=== PATIENT | female | born 1950 | race Caucasian/White ===

== ENCOUNTER 2017-02-20 11:40 | Emergency (ER) | payer OTHER ==
[~2017-02-20] VITALS: Ht 160 cm; Wt 72.6 kg
[~2017-02-20 11:40] MED LIST: ALBU17IN INH; ASPI1TAB PO; BREO1INH3 INH; INCR1INH INH; IPRASOL4 INH; LEVO125T3 PO; LOSA100T36 PO; PYRI60TA2 PO; TRAM50TA2 PO
[2017-02-20] MEDS ORDERED: methylPREDNISolone INJ 125 MG/2 ML VIAL (J2930) IV ONE (13:15)
[2017-02-20] MEDS: IPRATROPIUM 0.5MG/ALBUTEROL 2.5MG INH SOL UD 3ML (DUONEB)(J7620) NEB PRN ×3 (13:30→13:58)
[2017-02-20 13:46] LABS: BASO % 0.6 % (0.0-1.0); EOS # 0.8 K/mm3 (0.0-0.50); EOS % 9.3 % (0.0-3.0); LARGE UNSTAINED CELL # 0.1 K/mm3 (0.0-0.4); LARGE UNSTAINED CELL % 1.5 % (0.0-4.0); LYMPH # 1.2 K/mm3 (1.5-4.5); LYMPH % 13.6 % (24.0-44.0); MEAN CORPUSCULAR HEMOGLOBIN 30.6 pg (27.0-33.0); MEAN CORPUSCULAR HGB CONC 32.1 g/dl (32.0-36.5); MEAN CORPUSCULAR VOLUME 95.4 fl (80.0-96.0); MONO # 0.6 K/mm3 (0.0-0.8); MONO % 6.7 % (0.0-5.0); NEUTROPHILS # 5.8 K/mm3 (1.8-7.7); NEUTROPHILS % 68.3 % (36.0-66.0); PLATELET COUNT, AUTOMATED 232 k/mm3 (150-450); RED CELL DISTRIBUTION WIDTH 12.2 % (11.5-14.5); WHITE BLOOD COUNT 8.5 K/mm3 (4.0-10.0)
[2017-02-20 13:57] LABS: ANION GAP 8 MEQ/L (8-16); CALCIUM LEVEL 9.2 MG/DL (8.8-10.2); CARBON DIOXIDE LEVEL 24 MEQ/L (21-32); CHLORIDE LEVEL 110 MEQ/L (98-107); CREATININE FOR GFR 1.09 MG/DL (0.55-1.02); GLOMERULAR FILTRATION RATE 53.8 (>45); GLUCOSE, FASTING 83 MG/DL (80-110); POTASSIUM SERUM 4.3 MEQ/L (3.5-5.1); SODIUM LEVEL 142 MEQ/L (136-145)
[2017-02-20 13:59] LABS: BLOOD UREA NITROGEN 17 MG/DL (7-18)
--- NOTE | 2017-02-20 14:33 | REP ---
CHEST, TWO VIEWS: HISTORY: Cough. COMPARISON: 11/12/2015 The lungs are hyperinflated. A minimal increase in interstitial markings is present in the lungs. The heart is normal in size. The pulmonary vasculature is normal in appearance. The bony structure is intact. IMPRESSION: COPD. Signed by Vasquez Forrester MD 02/20/2017 02:35 P
[2017-02-20] MEDS ORDERED: ISOVUE-370 76% 100ML VIAL (Q9967) As Ordered ONE (14:40)
[2017-02-20 14:52] VITALS: O2SAT 96
--- NOTE | 2017-02-20 15:02 | REP ---
Clinical: Chest pain and shortness of breath . Technique: Axial contrast enhanced images from the thoracic inlet to the upper abdomen using 100 ml Isovue 370 intravenous contrast material with multiplanar re-formations. Findings: Satisfactory enhancement of the pulmonary vasculature is achieved and no filling defects are identified to suggest pulmonary embolus. Further evaluation of the mediastinum demonstrates essentially normal thoracic aorta, heart and pericardium. Lung chew suggest a mild emphysematous disease. There is a small area of presumed atelectasis in the deep right base which appears similar to 08/04/2016. No pleural effusion or pneumothorax. No significant adenopathy. Impression: No evidence for pulmonary embolus. Small focus of chronic atelectasis in the deep right lung base. Signed by Chenet Park MD 02/20/2017 02:54 P
[2017-02-20] MEDS ORDERED: PRED20TA PO (16:01)
[2017-02-20 16:09] VITALS: BP 175/80
--- NOTE | 2017-02-21 10:20 | ECGEPIP ---
Stationary ECG Study [facility] - ED Test Date: 2017-02-20 Pat Name: ASHLEY MARTINEZ Department: Room: - Gender: F Mill Controller: gayla : 1950 Requested By: SANDRO Morrison Order Number: [id number] Reading MD: Alonso Piper Measurements Intervals [place] Rate: 65 P: 84 CO: 156 QRS: 54 QRSD: 80 T: 55 QT: 393 QTc: 409 Interpretive Statements SINUS RHYTHM LAE SEPTAL MYOCARDIAL INFARCTION, OF INDETERMINATE AGE Electronically Signed On 02-21-2017 10:20:31 EDT by Alonso Piper
== END 2017-02-20 16:21 | disposition home or self-care (01) ==
LOC: M ED 14:28
DX: J44.1 Chronic obstructive pulmonary disease with (acute) exacerbation (principal); G70.00 Myasthenia gravis without (acute) exacerbation; F32.9 Major depressive disorder, single episode, unspecified; E07.9 Disorder of thyroid, unspecified; Z79.51 Long term (current) use of inhaled steroids; Z79.82 Long term (current) use of aspirin; Z88.0 Allergy status to penicillin; Z88.1 Allergy status to other antibiotic agents; Z88.6 Allergy status to analgesic agent
CPT/HCPCS: 36415; 71020; 71275; 80048; 82550; 82553; 83880; 85025; 85379; 87040; 87804; 93005; 93041; 94640; 94760; 99285; J2930; Q9967

== ENCOUNTER 2017-06-04 05:15 | Emergency (ER) | payer OTHER ==
[~2017-06-04] VITALS: Ht 162.6 cm; Wt 73.6 kg
[~2017-06-04 05:15] MED LIST changes: -LEVO125T3 PO; +LEVO125T4 PO; +PRED20TA PO
[2017-06-04] MEDS ORDERED: ACETAMINOPHEN TAB 650MG DOSE (2X325MG) PO ONE (06:15)
[2017-06-04 07:38] VITALS: BP 157/87
--- NOTE | 2017-06-04 08:39 | REP ---
Clinical: Trauma. Technique: AP and lateral views of the right forearm. Findings: No acute fracture dislocation. Skeletal structures, joint spaces, and surrounding soft tissues appear intact. Negative ulnar variance at the wrist may warrant correlation. Impression: 1. No acute fracture dislocation. 2. Negative ulnar variance at the wrist. Signed by Chente Park MD 06/04/2017 08:31 A
== END 2017-06-04 07:39 | disposition home or self-care (01) ==
LOC: M ED 05:15
DX: S50.11XA Contusion of right forearm, initial encounter (principal); S60.212A Contusion of left wrist, initial encounter; W19.XXXA Unspecified fall, initial encounter; Y92.019 Unspecified place in single-family (private) house as the place of occurrence of the external cause; Y93.9 Activity, unspecified; Y99.8 Other external cause status; I10 Essential (primary) hypertension; G70.00 Myasthenia gravis without (acute) exacerbation; E03.9 Hypothyroidism, unspecified; F32.9 Major depressive disorder, single episode, unspecified; J45.909 Unspecified asthma, uncomplicated; F17.200 Nicotine dependence, unspecified, uncomplicated; Z79.51 Long term (current) use of inhaled steroids; Z79.82 Long term (current) use of aspirin; Z79.899 Other long term (current) drug therapy; Z88.0 Allergy status to penicillin; Z88.1 Allergy status to other antibiotic agents; Z88.6 Allergy status to analgesic agent; Z88.8 Allergy status to other drugs, medicaments and biological substances

== ENCOUNTER 2017-10-20 10:29 | Emergency (ER) | payer MEDICARE, MEDICAID ==
[~2017-10-20] VITALS: Ht 160 cm; Wt 72.7 kg
[2017-10-20] MEDS ORDERED: KETOROLAC 60 MG/2 ML VIAL (J1885) IM ONE (12:15)
[2017-10-20] MEDS ORDERED: CYCL5TAB PO (12:29)
[2017-10-20 13:09] VITALS: BP 170/91
[2017-10-20] MEDS ORDERED: NORCOTAB PO (18:07)
== END 2017-10-20 13:10 | disposition home or self-care (01) ==
LOC: M ED 10:29
DX: M54.42 Lumbago with sciatica, left side (principal); J45.909 Unspecified asthma, uncomplicated; F33.9 Major depressive disorder, recurrent, unspecified; E03.9 Hypothyroidism, unspecified; G70.00 Myasthenia gravis without (acute) exacerbation; F17.210 Nicotine dependence, cigarettes, uncomplicated; Z79.899 Other long term (current) drug therapy; Z79.51 Long term (current) use of inhaled steroids; Z79.82 Long term (current) use of aspirin; Z88.0 Allergy status to penicillin; Z88.8 Allergy status to other drugs, medicaments and biological substances; Z88.1 Allergy status to other antibiotic agents
CPT/HCPCS: 96372; 99282; 99283; J1885; J2930

== ENCOUNTER 2017-10-20 17:08 | Emergency (ER) | payer MEDICARE, MEDICAID ==
[~2017-10-20] VITALS: Ht 160 cm; Wt 76.3 kg
[~2017-10-20 17:08] MED LIST changes: +CYCL5TAB PO
[2017-10-20 17:16] VITALS: BP 146/94
[2017-10-20] MEDS ORDERED: NORCOTAB PO (18:07)
[2017-10-20] MEDS ORDERED: methylPREDNISolone INJ 125 MG/2 ML VIAL (J2930) IM ONE (18:15)
== END 2017-10-20 18:14 | disposition home or self-care (01) ==
LOC: M ED 17:08
DX: M54.30 Sciatica, unspecified side (principal); J45.909 Unspecified asthma, uncomplicated; F33.9 Major depressive disorder, recurrent, unspecified; E03.9 Hypothyroidism, unspecified; G70.00 Myasthenia gravis without (acute) exacerbation; F17.210 Nicotine dependence, cigarettes, uncomplicated; Z79.899 Other long term (current) drug therapy; Z79.51 Long term (current) use of inhaled steroids; Z79.82 Long term (current) use of aspirin; Z88.0 Allergy status to penicillin; Z88.8 Allergy status to other drugs, medicaments and biological substances; Z88.1 Allergy status to other antibiotic agents

== ENCOUNTER → 2018-03-27 | Outpatient (CLI) | payer MEDICARE, MEDICAID ==
[2018-03-27 16:48] LABS: HEMATOCRIT 44.2 % (36.0-47.0); HEMOGLOBIN 14.1 g/dl (12.0-15.5); MEAN CORPUSCULAR HEMOGLOBIN 30.3 pg (27.0-33.0); MEAN CORPUSCULAR HGB CONC 31.9 g/dl (32.0-36.5); MEAN CORPUSCULAR VOLUME 94.8 fl (80.0-96.0); PLATELET COUNT, AUTOMATED 321 10^3/uL (150-450); RED BLOOD COUNT 4.66 10^6/uL (4.00-5.40); RED CELL DISTRIBUTION WIDTH 13.2 % (11.5-14.5); WHITE BLOOD COUNT 8.5 10^3/uL (4.0-10.0)
[2018-03-27 18:30] LABS: ALBUMIN 4.1 GM/DL (3.2-5.2); ALBUMIN/GLOBULIN RATIO 1.11 (1.00-1.93); ALKALINE PHOSPHATASE 105 U/L (45-117); ALT/SGPT 20 U/L (12-78); ANION GAP 7 MEQ/L (8-16); AST/SGOT 20 U/L (7-37); BILIRUBIN,TOTAL 0.7 MG/DL (0.2-1.0); BLOOD UREA NITROGEN 29 MG/DL (7-18); CALCIUM LEVEL 9.9 MG/DL (8.8-10.2); CARBON DIOXIDE LEVEL 25 MEQ/L (21-32); CHLORIDE LEVEL 108 MEQ/L (98-107); CHOLESTEROL LEVEL 247 MG/DL (<200); CHOLESTEROL RISK RATIO 3.207 (<5); GLOMERULAR FILTRATION RATE 30.1 (>45); GLUCOSE, FASTING 72 MG/DL (70-100); HDL CHOLESTEROL 77 MG/DL (>40); LDL CHOLESTEROL 145.8 MG/DL (<100); NON-HDL-C 170 MG/DL; POTASSIUM SERUM 4.7 MEQ/L (3.5-5.1); SODIUM LEVEL 140 MEQ/L (136-145); TOTAL PROTEIN 7.8 GM/DL (6.4-8.2); TRIGLYCERIDES LEVEL 121 MG/DL (<150)
== END ==
LOC: M WUC 12:00
DX: I10 Essential (primary) hypertension (principal); E03.9 Hypothyroidism, unspecified
CPT/HCPCS: 84443

== ENCOUNTER → 2018-07-05 | Outpatient (REF) | payer MEDICARE, MEDICAID ==
[2018-07-05 18:14] LABS: IMMUNOGLOBULIN E 17.1 IU/ML (<100)
[2018-07-09 08:06] LABS: D001-IgE D pteronyssinus <0.10 kU/L (Class 0); E001-IgE Cat Epith/Dander < 0.10 kU/L (Class 0); E005-IgE Dog Dander < 0.10 kU/L (Class 0); G002-IgE Bermuda Grass < 0.10 kU/L (Class 0); G008-IgE Kentucky Bluegrass < 0.10 kU/L (Class 0); M001-IgE Penicillium chrysogen < 0.10 kU/L (Class 0); M002 IgE Cladosporium herbaru < 0.10 kU/L (Class 0); M003 IgE Aspergillus fumigatu < 0.10 kU/L (Class 0); M006-IgE Alternaria alternata < 0.10 kU/L (Class 0); T001-IgE Maple/Box Elder < 0.10 kU/L (Class 0); T003-IgE Common Silver Birch < 0.10 kU/L (Class 0); T006-IgE Cedar, Mountain < 0.10 kU/L (Class 0); T007-IgE Oak, White < 0.10 kU/L (Class 0); T008-IgE Elm, American < 0.10 kU/L (Class 0); T015-IgE Ash, White < 0.10 kU/L (Class 0); T041-IgE Hickory, White < 0.10 kU/L (Class 0); T070-IgE White Mulberry < 0.10 kU/L (Class 0); W001-IgE Ragweed, Short < 0.10 kU/L (Class 0); W009-IgE Plantain, English < 0.10 kU/L (Class 0); W014-IgE Pigweed, Rough < 0.10 kU/L (Class 0); W018-IgE Sheep Sorrel < 0.10 kU/L (Class 0)
== END ==
LOC: M LAB REF 16:54
DX: J45.20 Mild intermittent asthma, uncomplicated (principal)
CPT/HCPCS: 82785

== ENCOUNTER 2018-07-15 13:01 | Emergency (ER) | payer MEDICARE, MEDICAID ==
[2018-07-15] MEDS: NORCO, ANEXSIA 5/325MG TABLET (HYDROcodone/ACETAMINOPHEN) PO (13:59)
[2018-07-15] MEDS: KETOROLAC 60 MG/2 ML VIAL (J1885) IM (14:00)
== END 2018-07-15 14:26 | disposition home or self-care (01) ==
LOC: M ED 13:01
DX: M54.42 Lumbago with sciatica, left side (principal); E03.9 Hypothyroidism, unspecified; F32.9 Major depressive disorder, single episode, unspecified; J44.9 Chronic obstructive pulmonary disease, unspecified; Z87.891 Personal history of nicotine dependence; Z79.82 Long term (current) use of aspirin; Z79.899 Other long term (current) drug therapy; Z88.0 Allergy status to penicillin; Z88.6 Allergy status to analgesic agent; Z88.1 Allergy status to other antibiotic agents; Z88.8 Allergy status to other drugs, medicaments and biological substances
CPT/HCPCS: J1885

== ENCOUNTER 2018-08-26 12:59 | Emergency (ER) | payer MEDICARE, MEDICAID ==
[2018-08-26] MEDS: methylPREDNISolone INJ 125 MG/2 ML VIAL (J2930) IM (14:07)
== END 2018-08-26 14:30 | disposition home or self-care (01) ==
LOC: M ED 12:59
DX: M54.32 Sciatica, left side (principal); I10 Essential (primary) hypertension; J44.9 Chronic obstructive pulmonary disease, unspecified; E03.9 Hypothyroidism, unspecified; F32.9 Major depressive disorder, single episode, unspecified; G70.00 Myasthenia gravis without (acute) exacerbation; Z88.0 Allergy status to penicillin; Z88.8 Allergy status to other drugs, medicaments and biological substances; Z88.1 Allergy status to other antibiotic agents; Z79.899 Other long term (current) drug therapy; Z79.82 Long term (current) use of aspirin; Z79.51 Long term (current) use of inhaled steroids
CPT/HCPCS: J2930

== ENCOUNTER 2018-10-14 13:08 | Emergency (ER) | payer MEDICARE, MEDICAID ==
[2018-10-14] MEDS ORDERED: methylPREDNISolone INJ 125 MG/2 ML VIAL (J2930) IV (14:30)
[2018-10-14] MEDS: methylPREDNISolone INJ 125 MG/2 ML VIAL (J2930) IM (14:30)
== END 2018-10-14 14:54 | disposition home or self-care (01) ==
LOC: M ED 13:08
DX: J20.9 Acute bronchitis, unspecified (principal); M54.32 Sciatica, left side; I10 Essential (primary) hypertension; J44.0 Chronic obstructive pulmonary disease with (acute) lower respiratory infection; E03.9 Hypothyroidism, unspecified; G70.00 Myasthenia gravis without (acute) exacerbation; Z88.0 Allergy status to penicillin; Z88.1 Allergy status to other antibiotic agents; Z88.8 Allergy status to other drugs, medicaments and biological substances; Z87.891 Personal history of nicotine dependence
CPT/HCPCS: J2930

== ENCOUNTER 2019-02-17 10:51 | Emergency (ER) | payer MEDICARE, MEDICAID ==
[~2019-02-17] VITALS: Ht 165.1 cm; Wt 70.7 kg
[~2019-02-17 10:51] MED LIST changes: +AZIT-12 PO; +GABA-843 PO; +IPRA0.00 INH; -IPRASOL4 INH; +LEVO125T4; -LOSA100T36 PO; +LOSA100T50 PO; +NORCOTAB PO
[2019-02-17] MEDS ORDERED: ATOR80TA59 (11:08)
[2019-02-17] MEDS ORDERED: methylPREDNISolone INJ 125 MG/2 ML VIAL (J2930) IM ONE (11:30)
[2019-02-17] MEDS ORDERED: NORCO, ANEXSIA 5/325MG TABLET (HYDROcodone/ACETAMINOPHEN) PO ONE (12:15)
[2019-02-17] MEDS ORDERED: PRED10TA2 PO (12:27)
[2019-02-17 12:33] VITALS: BP 137/56
== END 2019-02-17 12:34 | disposition home or self-care (01) ==
LOC: M ED 10:51
DX: M54.42 Lumbago with sciatica, left side (principal); G89.29 Other chronic pain; G70.00 Myasthenia gravis without (acute) exacerbation; I10 Essential (primary) hypertension; J45.909 Unspecified asthma, uncomplicated; J44.9 Chronic obstructive pulmonary disease, unspecified; E03.9 Hypothyroidism, unspecified; F32.9 Major depressive disorder, single episode, unspecified; Z79.82 Long term (current) use of aspirin; Z79.891 Long term (current) use of opiate analgesic; Z79.899 Other long term (current) drug therapy; Z88.0 Allergy status to penicillin; Z88.1 Allergy status to other antibiotic agents; Z88.6 Allergy status to analgesic agent; Z88.8 Allergy status to other drugs, medicaments and biological substances
CPT/HCPCS: 96372; 99283; J2930

== ENCOUNTER 2019-10-28 17:10 | Emergency (ER) | payer MEDICARE, MEDICAID ==
[~2019-10-28] VITALS: Ht 157.5 cm; Wt 70.5 kg
[~2019-10-28 17:10] MED LIST changes: -ASPI1TAB PO; +ASPI81TA26 PO; +ATOR80TA59; +HYDR-3715 PO; -NORCOTAB PO; +PRED10TA2 PO
[2019-10-28 18:14] VITALS: BP 192/81
[2019-10-28] MEDS ORDERED: NYST50SS (18:20)
== END 2019-10-28 19:00 | disposition left against medical advice (07) ==
LOC: M ED 17:10
DX: R06.00 Dyspnea, unspecified (principal); B37.0 Candidal stomatitis; I10 Essential (primary) hypertension; J44.9 Chronic obstructive pulmonary disease, unspecified; G70.00 Myasthenia gravis without (acute) exacerbation; F17.290 Nicotine dependence, other tobacco product, uncomplicated; Z79.899 Other long term (current) drug therapy; Z79.82 Long term (current) use of aspirin; Z79.51 Long term (current) use of inhaled steroids; Z88.0 Allergy status to penicillin; Z88.1 Allergy status to other antibiotic agents; Z88.6 Allergy status to analgesic agent

== ENCOUNTER 2019-11-12 14:33 | Emergency (ER) | payer MEDICARE, MEDICAID ==
[~2019-11-12] VITALS: Ht 162.6 cm; Wt 70.5 kg
[~2019-11-12 14:33] MED LIST changes: +NYST50SS
[2019-11-12] MEDS ORDERED: BREO1INH3 PO (14:43)
[2019-11-12 15:50] LABS: AMORPHOUS SEDIMENT SMALL (NEGATIVE); APPEARANCE, URINE HAZY (CLEAR); BACTERIA, URINE AUTO NEGATIVE (NEGATIVE); BILIRUBIN, URINE AUTO NEGATIVE (NEGATIVE); BLOOD, URINE BLOOD NEGATIVE (NEGATIVE); COLOR, URINE YELLOW (YELLOW); GLUCOSE, URINE (UA) AUTO NEGATIVE (NEGATIVE); KETONE, URINE AUTO NEGATIVE (NEGATIVE); LEUKOCYTE ESTERASE, URINE AUTO 3+ (NEGATIVE); MUCUS, URINE SMALL (NEGATIVE); NITRITE, URINE AUTO NEGATIVE (NEGATIVE); PROTEIN, URINE AUTO NEGATIVE (NEGATIVE); RBC, URINE AUTO 6 /HPF (0-3); SPECIFIC GRAVITY URINE AUTO 1.016 (1.002-1.035); SQUAMOUS EPITHELIAL CELL UR AU 2 /HPF (0-6); UROBILINOGEN, URINE AUTO 0.2 mg/dL (0.0-2.0); WBC, URINE AUTO 162 /HPF (0-3)
[2019-11-12 15:52] LABS: BASO # 0.1 10^3/uL (0.0-0.2); BASO % 1.1 % (0.0-1.0); EOS # 0.2 10^3/uL (0.0-0.5); EOS % 2.4 % (0.0-3.0); HEMATOCRIT 42.3 % (36.0-47.0); LYMPH # 1.9 10^3/uL (1.5-5.0); LYMPH % 22.7 % (24.0-44.0); MEAN CORPUSCULAR HEMOGLOBIN 29.7 pg (27.0-33.0); MEAN CORPUSCULAR HGB CONC 30.7 g/dl (32.0-36.5); MEAN CORPUSCULAR VOLUME 96.8 fl (80.0-96.0); MONO # 0.7 10^3/uL (0.0-0.8); NEUTROPHILS # 5.5 10^3/uL (1.5-8.5); NEUTROPHILS % 65.4 % (36.0-66.0); PLATELET COUNT, AUTOMATED 275 10^3/uL (150-450); RED BLOOD COUNT 4.37 10^6/uL (4.00-5.40); WHITE BLOOD COUNT 8.5 10^3/uL (4.0-10.0)
[2019-11-12] MEDS ORDERED: CARVedilol 3.125 MG TAB PO ONE (16:00)
[2019-11-12 16:14] LABS: ALBUMIN 3.9 GM/DL (3.2-5.2); BILIRUBIN,TOTAL 1.2 MG/DL (0.2-1.0); CALCIUM LEVEL 9.6 MG/DL (8.8-10.2); CREATININE FOR GFR 1.17 MG/DL (0.55-1.30); GLOMERULAR FILTRATION RATE 49.1 (>45); POTASSIUM SERUM 4.8 MEQ/L (3.5-5.1); TOTAL PROTEIN 7.7 GM/DL (6.4-8.2)
[2019-11-12 17:08] VITALS: BP 140/90
[2019-11-12] MEDS ORDERED: BACT800T5 PO (17:19)
[2019-11-12] MEDS ORDERED: LOSA100T50 PO (17:19)
[2019-11-12] MEDS ORDERED: CARV3.12 PO (17:19)
--- NOTE | 2019-11-12 17:34 | REP ---
REASON: Painful lump. PRIORS: None. No history of trauma. There are mild degenerative changes seen throughout the foot. There is no evidence of an acute fracture. There is no evidence of a destructive osseous lesion. IMPRESSION: Mild degenerative changes. If a mass is of clinical concern than an MRI is recommended. Electronically Signed by Reji Harrison DO 11/13/2019 11:31 A
--- NOTE | 2019-11-13 07:20 | REP ---
RENAL ULTRASOUND: Real-time sonographic evaluation of the kidneys performed. Right kidney is atrophic measuring 8.2 x 3.2 x 3.6 cm. Left kidney measures 9.4 x 3.9 x 4.7 cm. There is no hydronephrosis bilaterally. Right kidney is hyperechoic suggesting medical renal disease. The cyst in the upper pole of the left kidney measures 2.2 x 1.6 x 1.9 cm and in the mid aspect 1.7 x 1.8 x 1.9 cm. Urinary bladder is not well distended and not well evaluated. IMPRESSION: No hydronephrosis. Right renal atrophy. Increased echotexture of the right kidney suggests medical renal disease. Electronically Signed by Meliton Montes MD 11/13/2019 07:15 P
--- NOTE | 2019-11-13 08:05 | ECGEPIP ---
[facility] - ED Test Date: 2019-11-12 Pat Name: ASHLEY MARTINEZ Department: Room: - Gender: Female Cardiac Sonographer: : 1950 Requested By: Nancy Mcneill Order Number: [id number] Reading MD: Nancy Mcneill Measurements Intervals [place] Rate: 86 P: 81 LA: 144 QRS: 38 QRSD: 83 T: 61 QT: 337 QTc: 405 Interpretive Statements SINUS RHYTHM POSSIBLE LEFT ATRIAL ENLARGEMENT SEPTAL MYOCARDIAL INFARCTION, PROBABLY OLD INCREASED RATE 02/20/17 Electronically Signed on 11-13-2019 8:05:39 EST by Nancy Mcneill
--- NOTE | 2019-11-18 08:03 | ED PDOC ---
Post-Departure Follow-Up dr reickson faxed formal report of left foot for fu Yumiko Richmond MD Nov 18, 2019 08:03
--- NOTE | 2019-11-18 08:15 | ED PDOC ---
Post-Departure Follow-Up dr murray faxed fomral report of renal us for fu Yumiko Richmond MD Nov 18, 2019 08:15
== END 2019-11-12 17:27 | disposition home or self-care (01) ==
LOC: M ED 14:33
DX: I10 Essential (primary) hypertension (principal); N39.0 Urinary tract infection, site not specified; J45.909 Unspecified asthma, uncomplicated; J44.9 Chronic obstructive pulmonary disease, unspecified; E03.9 Hypothyroidism, unspecified; G70.00 Myasthenia gravis without (acute) exacerbation; F33.9 Major depressive disorder, recurrent, unspecified; Z79.899 Other long term (current) drug therapy; Z79.82 Long term (current) use of aspirin; Z88.0 Allergy status to penicillin; Z88.1 Allergy status to other antibiotic agents; Z88.8 Allergy status to other drugs, medicaments and biological substances; Z87.891 Personal history of nicotine dependence

== ENCOUNTER → 2020-01-20 | Outpatient (CLI) | payer MEDICARE, MEDICAID ==
[~2020-01-20] MED LIST changes: +BACT800T5 PO; +BREO1INH3 PO; +CARV3.12 PO
--- NOTE | 2020-01-20 15:37 | REP ---
Low-dose lung screening chest CT: Comparison is the chest CT dated 08/04/2016. The study is performed without IV contrast. The images are presented at lung windowing only. There is a 7 ml nodule in the right upper lobe on image 41, unchanged from the prior study, likely a granuloma. There are no other lung nodules or masses. There are no infiltrates or pleural effusions. There is chronic curvilinear scarring inferiorly in the lingula and in the lower lobes bilaterally, unchanged from the prior study. Impression: Category II low-dose lung screening CT of the chest. The probability of malignancy is less than 1%. Depending on risk factors consider annual follow-up low-dose lung screening chest CT. Electronically Signed by Meliton Lowery MD 01/20/2020 03:29 P
== END ==
LOC: M RAD 13:34
PROVIDERS: ATTEND Internal Medicine Pulmonary Disease
DX: Z87.891 Personal history of nicotine dependence (principal)

== ENCOUNTER 2020-08-26 20:40 | Emergency (ER) | payer MEDICARE, MEDICAID ==
[~2020-08-26] VITALS: Ht 160 cm; Wt 70.5 kg
[2020-08-26] MEDS ORDERED: KETOROLAC 60MG 2ML VIAL IM ONE (21:15)
[2020-08-26] MEDS ORDERED: diazePAM 10MG/2ML SYRINGE (J3360 PER 5MG) IM ONE (21:15)
[2020-08-26] MEDS ORDERED: NAPR-837 PO (21:24)
[2020-08-26] MEDS ORDERED: CYCL-707 PO (21:24)
[2020-08-26 21:29] VITALS: BP 210/112
[2020-08-26] MEDS ORDERED: PERCOCET 5MG/325MG TAB PO ONE (21:30)
== END 2020-08-26 21:38 | disposition home or self-care (01) ==
LOC: M ED 20:40
DX: M54.30 Sciatica, unspecified side (principal); M79.604 Pain in right leg; J44.9 Chronic obstructive pulmonary disease, unspecified; F17.200 Nicotine dependence, unspecified, uncomplicated; Z88.0 Allergy status to penicillin; Z88.1 Allergy status to other antibiotic agents; Z88.6 Allergy status to analgesic agent; Z88.8 Allergy status to other drugs, medicaments and biological substances; Z79.899 Other long term (current) drug therapy; Z79.82 Long term (current) use of aspirin; Z79.51 Long term (current) use of inhaled steroids
CPT/HCPCS: 96372; 99282; J1885

== ENCOUNTER → 2020-09-14 | Outpatient (CLI) | payer MEDICARE, MEDICAID ==
[~2020-09-14] MED LIST changes: +CYCL-707 PO; +NAPR-837 PO
--- NOTE | 2020-09-15 16:01 | ECWPNPC ---
PATIENT NAME: ASHLEY MARTINEZ : 1950 GENDER: FEMALE VISIT DATE: 09/14/2020 DISCHARGE DATE: 09/14/2034 VISIT LOCKED DATE TIME: PHYSICIAN: ANA BLOOM RESOURCE: ANA BLOOM REASON FOR APPOINTMENT 1. BILAT KNEE PAIN HISTORY OF PRESENT ILLNESS GENERAL: - 70-YEAR-OLD FEMALE IN FOR CHRONIC PAIN INITIAL EVALUATION. PATIENT HAS HAD BILATERAL KNEE PAIN THAT SHE HAS BEEN SEEN BY ORTHOPEDICS FOR. PATIENT HAD BEEN RECEIVING INJECTIONS BY ORTHOPEDICS HOWEVER SHE IS EXPERIENCING INCREASED FALLS STATUS POST INJECTIONS OF THE WERE DISCONTINUED. SHE HAS A HISTORY OF BEING ON TRAMADOL 6 TABS PER DAY TO HELP MANAGE HER PAIN AND SHE FELT THAT THIS WAS EFFICACIOUS. FALL RISK SCREENING: SCREENING :TWO OR MORE FALLS WITHOUT INJURY IN THE PAST YEAR PATIENT STATES SHE HAS MYSTNIA GRAVIAS, AND TENDS TO FALL OFTEN. PATIENT CLAIMS SHE HAS NOT BROKEN BONES, ONLY BRUISES AT THIS TIME. PAIN SCREENING: PATIENT HAS A COMPLAINT OF ACUTE OR CHRONIC PAIN :YES LOCATION OF PAIN:KNEES BILATERAL KNEE PAIN INTENSITY OF PAIN (SCALE OF 1 TO 10):6 WHAT DOES YOUR PAIN FEEL LIKE:ACHING, BURNING, SHARP, SHOOTING DURATION:CONSTANT, AWAKENS FROM SLEEP PAIN IS INCREASED BY:ACTIVITIES, PROLONGED STANDING PAIN IS DECREASED BY:USE OF PAIN MEDICATIONS TRAMADOL HELPS TO EASE THE PAIN. PATIENTS STATES ORTHOPEDIC HAD HER TAKING 6 TRAMADOL A DAY, AND HAS RECENTLY REDUCED HER TO 3 TRAMADOL A DAY. NURSING NOTE: - -. PAIN CENTER INTAKE QUESTIONS: DO YOU HAVE A HISTORY OF MRSA? :NO DO YOU TAKE A BLOOD THINNERS? :NO DO YOU HAVE ANY BLEEDING DISORDERS? :NO ANY NEW NUMBNESS OR WEAKNESS IN YOUR LEGS OR ARMS? :NO ANY PACEMAKER,DEFIBRILLATOR, OR DORSAL COLUMN STIMULATOR? :NO DO YOU HAVE ANY RASHES OR OPEN SORES? :NO ARE YOU ALLERGIC TO IV DYE? :NO ARE YOU DIABETIC? :NO ANY NEW PROBLEMS WITH YOUR MEDICATIONS? :NO HAVE YOU RECEIVED A VACCINE IN THE PAST 30 DAYS? :YES PATIENT HAD A FLU SHOT 2 WEEKS AGO DO YOU PLAN TO RECEIVE A VACCINE IN THE NEXT 21 DAYS? :NO DO YOU NEED ANY PRESCRIPTION? :NO DO YOU TAKE ANY IMMUNOSUPPRESSIVE MEDICATIONS? :NO CURRENT MEDICATIONS TAKING LEVOXYL 125 MCG TABLET 1 TABLET ON AN EMPTY STOMACH IN THE MORNING ORALLY ONCE A DAY TAKING ASPIR-81 81 MG TABLET DELAYED RELEASE 1 TABLET ORALLY ONCE A DAY TAKING BREO ELLIPTA 200-25 MCG/INH AEROSOL POWDER BREATH ACTIVATED 1 PUFF INHALATION ONCE A DAY TAKING INCRUSE ELLIPTA 62.5 MCG/INH AEROSOL POWDER BREATH ACTIVATED 1 PUFF INHALATION ONCE A DAY TAKING LEVALBUTEROL TARTRATE 45 MCG/ACT AEROSOL INHALE TWO PUFFS BY MOUTH EVERY 4 HOURS NEEDED INHALATION TAKING ATORVASTATIN CALCIUM 80 MG TABLET 1 TABLET ORALLY ONCE A DAY TAKING LOSARTAN POTASSIUM 25 MG TABLET 1 TABLET ORALLY ONCE A DAY TAKING CARVEDILOL 3.125 MG TABLET 1 TABLET ORALLY TWICE A DAY TAKING LIDOCAINE 5 % OINTMENT 1 APPLICATION NEEDED EXTERNALLY THREE TIMES A DAY TAKING TRAMADOL HCL 50 MG TABLET 1 TABLET NEEDED ORALLY TID TAKING LEVOTHYROXINE SODIUM 125 MCG TABLET 1 TABLET IN THE MORNING ON AN EMPTY STOMACH ORALLY ONCE A DAY TAKING SIMVASTATIN 10 MG TABLET 1 TABLET IN THE EVENING ORALLY ONCE A DAY TAKING TYLENOL 1 -2 TABS ORAL EVERY 6 HOURS PRN NOT-TAKING ALBUTEROL SULFATE (2.5 MG/3ML) 0.083% NEBULIZATION SOLUTION 3 ML INHALATION THREE TIMES A DAY NOT-TAKING VENTOLIN HFA 108 (90 BASE) MCG/ACT AEROSOL SOLUTION 1 PUFF NEEDED INHALATION EVERY 4 HRS MEDICATION LIST REVIEWED AND RECONCILED WITH THE PATIENT PAST MEDICAL HISTORY COPD/ SPIRO10/10/ PULM NODULE- LILLIANA MYASTHENIA GRAVIS- NCN- S BARBARA TOBACCO ABUSE- QUIT 01/14. BACK PAIN HYPOTHYROIDISM CHEST X-RAY 10/10/13-STABLE CHRONIC CHANGES. NO ACUTE CONSOLIDATION/EFFUSION/PNEUMOTHORAX NUCLEAR STRESS STUDY 05/02 [facility] NORMAL PERFUSION/EF 79% EKG 05/02 NSR/ EKG 11/08/13 NSR, NO CHANGE FROM PREVIOUS MRI BRAIN 11/26/13 NML ECHO [facility] 04/25/14- NML SYST AND DIASTOLIC FUNCTION, TR MR MAMMO- REFUSES DEXA- REFUSES XR LS SPINE- MILD DDD L5-S1 SIMILAR TO 09/01 PREMATURE SURGICAL MENOPAUSE AGE 27/ERTX36 YRS CANNY-ECHO/STRESS LOW RISK 11/10 ASTHMA ALLERGIES AMOXICILLIN: HIVES - ALLERGY TETRACYCLINE HCL: HIVES - ALLERGY COMPAZINE: HIVES - ALLERGY IBUPROFEN: HIGH DOSES N/V - SIDE EFFECTS ASPIRIN: HIGH DOSES N/V - SIDE EFFECTS SURGICAL HISTORY LEFT HAND AND ARM TENDON REPAIR 16 YO C SECTION 1969 HYSTERECTOMY/BSO 1976 COLONOSCOPY- REFUSED FAMILY HISTORY FATHER: , SD 56 YO MOTHER: ALIVE 86 YRS, S/P RENAL TRANSPLANT SIBLINGS: , SISTER WITH PRIMARY BILIARY CIRHOSIS, COLON CA AT 60, WAS ALSO KNOWN TO HAVE RENAL FAILURE SON(S): ALIVE, BORN 1969/1971. OLDEST AMI IN 40 DAUGHTER(S): ALIVE, BORN 1974,1975. BOTH, NO KNOWN MEDICAL PROBLEMS 1 BROTHER(S) , 2 SISTER(S) . 2 SON(S) , 2 DAUGHTER(S) - HEALTHY. DENIES BREAST OR OVARIAN CANCERS. SOCIAL HISTORY GENERAL: TOBACCO USE ARE YOU A:CURRENT SMOKER PATEINT CURRENTLY VAPES ARE YOU INTERESTED IN QUITTING?NOT READY TO QUIT COUNSELED THE PATIENT ON SMOKING EFFECTS, EDUCATION NNEIGSQE26/19/2020 PATIENT COUNSELED ON THE DANGERS OF TOBACCO USE AND URGED TO QUIT:09/14/2020 LATEX QUESTIONNAIRE LATEX ALLERGY : HAVE YOU EVER DEVELOPED ANY TYPE OF REACTION AFTER HANDLING LATEX PRODUCTS SUCH RUBBER GLOVES, CONDOMS, DIAPHRAGMS, BALLOONS, SOCKS, OR UNDERWEAR?NO LATEX ALLERGY : HAVE YOU EVER DEVELOPED ANY TYPE OF REACTION DURING OR AFTER DENTAL APPOINTMENT, VAGINAL/RECTAL EXAMINATION, SURGICAL PROCEDURE, OR ANY OTHER EXPOSURE?NO LATEX RISK : HAVE YOU EVER HAD ANY DIFFICULTY BREATHING OR HIVES AFTER EATING OR HANDLING ANY FRUITS, OR VEGETABLES; SUCH KIWI, BANANAS, STONE FRUITS, OR CHESTNUTSNO LATEX RISK : DO YOU HAVE A PREVIOUS PERSONAL HISTORY OF MORE THAN NINE SURGERIES, SPINA BIFIDA, OR REPEATED CATHERIZATIONS? NO LATEX RISK : ARE YOU FREQUENTLY EXPOSED TO LATEX PRODUCTS IN YOUR OCCUPATION?NO DATE ASKED : 09/14/2020 BMI CARE GOAL FOLLOW-UP ABOVE NORMAL BMI FOLLOW-UPLIFESTYLE EDUCATION REGARDING DIET ALCOHOL SCREENING DID YOU HAVE A DRINK CONTAINING ALCOHOL IN THE PAST YEAR?NO POINTS0 INTERPRETATIONNEGATIVE RECREATIONAL DRUG USE DENIES. CAFFEINE 1-2/DAY. SEXUAL HX HAD SEX IN THE LAST 12 MONTHS (VAGINAL, ORAL, OR ANAL)?NO HAVE YOU EVER HAD AN STD?NO HIV / HEP-C SCREENING HIV TEST OFFERED TO PATIENT:YES DATE OFFERED:11/30/2018 TEST ACCEPTED:NO HEP-C TEST OFFERED TO PATIENT:YES DATE OFFERED:11/30/2018 TEST ACCEPTED:NO BROCHURE PROVIDED TO PATIENTNO SPIRITISM NO CHRISTIANITY BELIEFS THAT WOULD IMPACT HEALTH CARE. LANGUAGE TRINIDADIAN. EDUCATION LEVEL OF EDUCATION:FINISHED HIGH SCHOOL LEARNING BARRIERS / SPECIAL NEEDS BARRIERS TO LEARNING?NO HEARING IMPAIRED?YES VISION IMPAIRED?YES COGNITIVELY IMPAIRED?NO : CAN'T AFFORD HEARING AIDS :CORRECTIVE LENSES READINESS TO LEARN?YES LEARNING PREFERENCES?NO LEARNING CAPABILITIES PRESENT?YES EMOTIONAL BARRIERS?NO SPECIAL DEVICES?NO TABLE GAMES SUPERVISOR NEEDED?NO DOMESTIC VIOLENCE REPORTS PHYSICAL ABUSE, VERBAL ABUSE IN PREVIOUS MARRIAGE. OCCUPATION: RETIRED SEAMSTRESS. DIET: REGULAR. EXERCISE: WALKS 2 MILES DAILY. MARITAL STATUS: SINGLE. OTHERS AT HOME: LIVES ALONE. PAIN CLINIC PFS, CLERGY, PUBLIC HEALTH REFERRALS HAS THE PATIENT BEEN EDUCATED REGARDING HIS/HER PLAN OF CARE?YES HAS THE PATIENT BEEN EDUCATED REGARDING PAIN, THE RISK FOR PAIN, THE IMPORTANCE OF EFFECTIVE PAIN MANAGEMENT, AND THE PAIN ASSESSMENT PROCESS?YES HOUSING: RENTS HOUSE. ADVANCE DIRECTIVE ADVANCE DIRECTIVE DISCUSSED WITH PATIENT:YES . NO HCP YET, BUT FILLED OUT [facility]OLST 11/2018 HOSPITALIZATION/MAJOR DIAGNOSTIC PROCEDURE NO HOSPITALIZATION HISTORY. REVIEW OF SYSTEMS CONSTITUTIONAL: ANY RECENT FEVER NO . CHILLS NO . WEIGHT CHANGE OF UNKNOWN REASONS NO . MUSCULOSKELETAL: ANY UNUSUAL JOINT PAIN OR SWELLING NOT MENTIONED NO . SYSTEMIC LUPUS NO . ANY NEUROMUSCULAR DISORDER NOT MENTIONED NO . LYME DISEASE NO . GASTROENTEROLOGY: ANY NEW CHANGE IN BOWEL CONTROL? NO . HISTORY OF LIVER DISORDER NOT MENTIONED NO . HISTORY OF UNUSUAL ABDOMINAL PAIN OR CRAMPING NOT MENTIONED NO . NO CONSTIPATION. GENITOURINARY: ANY NEW CHANGE IN BLADDER CONTROL? NO . ANY RENAL/KIDNEY CONDITON NOT MENTIONED NO . NEUROLOGY: HISTORY OF TBI NOT MENTIONED NO . OTHER NEW NUMBNESS OR PAIN PATTERNS NOT MENTIONED NO . NEW ONSET DIZZINESS OR NEUROLOGICAL CHANGES NOT MENTIONED NO . HISTORY OF SEVERE HEADACHES NOT MENTIONED NO . HISTORY OF STROKE OR NEUROLOGICAL DISORDER NOT MENTIONED NO . CARDIOLOGY: HEART SURGERY NO . CONGESTIVE HEART FAILURE/FLUID OVERLOAD NOT MENTIONED NO . HISTORY OF CHEST PAIN,IRREGULAR HEART BEAT NOT MENTIONED NO . RESPIRATORY: SHORTNESS OF BREATH ON EXERTION, WHEEZES, UNUSUAL COUGH NOT MENTIONED NO . ENDOCRINOLOGY: ADRENAL GLAND OR THYROID DISORDERS NOT MENTIONED NO . UNUSUAL URINATION, DIZZINESS OR LETHARGY NOT MENTIONED NO . VITAL SIGNS WT 180/70 LBS, HT 64 IN, BMI 27.91 INDEX, BP 180/70 MM HG, HR 73 /MIN, RR 18 /MIN, TEMP 96.6 F, OXYGEN SAT % 97%, SAFE IN ENV? (Y/N) YES, NA INITIALS AW 0839, REVIEWED BY: DM. EXAMINATION GENERAL EXAMINATION: GENERALNO ACUTE DISTRESS, WELL NOURISHED AND HYDRATED. PSYCHAPPROPRIATE MOOD AND AFFECT . LUNGS:CLEAR TO AUSCULTATION BILATERALLY, NO WHEEZES, RHONCHI, RALES. HEART:NO MURMURS, REGULAR RATE AND RHYTHM. MUSCULOSKELETAL:POINT TENDER BILATERAL KNEES ALONG JOINT LINE SURROUNDING SKIN SHOWS NO ERYTHEMA, ECCHYMOSIS, INCREASED WARMTH, AND/OR SKIN ERUPTIONS NOTED. PATIENT DOES ENDORSE INCREASED PAIN WITH FLEXION AND EXTENSION . ASSESSMENTS PAIN IN RIGHT KNEE - M25.561 (PRIMARY) PAIN IN LEFT KNEE - M25.562 TREATMENT PAIN IN RIGHT KNEE REFILL TRAMADOL HCL TABLET, 50 MG, 1 TABLET NEEDED, ORALLY, EVERY 6 HRS NEEDED FOR PAIN, 30 DAYS, 180 CLINICAL NOTES: 70-YEAR-OLD FEMALE IN FOR INITIAL PAIN CONSULT. GIVEN PRESENTING SYMPTOMS AND RESULTS OF PHYSICAL EXAMINATION RECOMMENDED RESTARTING TRAMADOL EVERY 4 HOURS NEEDED FOR PAIN MDD OF 6 WITH FOLLOW-UP IN ONE MONTH TO DETERMINE EFFICACY OF TREATMENT. PATIENT HAS EXPRESSED UNDERSTANDING OF AND WAS IN AGREEMENT WITH TREATMENT PLAN. GIVEN TIME TO ASK QUESTIONS AND EXPRESS CONCERNS. , ISTOP REGISTRY REVIEWED AND DEMONSTRATES COMPLLIANCE. (REF # [id number] ). PREVENTIVE MEDICINE PAIN CLINIC TEACHING: THE PATIENT HAS BEEN EDUCATED REGARDING PAIN, THE RISK FOR PAIN, THE IMPORTANCE OF EFFECTIVE PAIN MANAGEMENT, AND THE PAIN ASSESSMENT PROCESS. : DISCUSSED CARE PLAN WITH PATIENT, PATIENT VERBALIZES UNDERSTANDING. PATIENT WAS GIVEN A NEW NARCOTIC AGREEMENT AND UTOX SCREENING. -DM PROCEDURE CODES FA211 ESTABILISHED PATIENT [facility] CHARGE DISPOSITION & COMMUNICATION FOLLOW UP 4 WEEKS (REASON: MEDICATION) ELECTRONICALLY SIGNED BY DEVIN PEPE ON 09/15/2020 AT 03:07 PM EDT DISCLAIMER : THIS IS A VISIT SUMMARY EXTRACTED FROM THE [employer] CHART. IT IS NOT A COPY OF THE [employer] PROGRESS NOTE. MTDD
== END ==
LOC: M PAIN 08:30
PROVIDERS: ATTEND Family Medicine
DX: M25.561 Pain in right knee (principal); M25.562 Pain in left knee; J44.9 Chronic obstructive pulmonary disease, unspecified; E03.9 Hypothyroidism, unspecified; G70.00 Myasthenia gravis without (acute) exacerbation; J45.909 Unspecified asthma, uncomplicated; F17.290 Nicotine dependence, other tobacco product, uncomplicated; Z79.82 Long term (current) use of aspirin; Z79.891 Long term (current) use of opiate analgesic; Z88.0 Allergy status to penicillin; Z88.6 Allergy status to analgesic agent; Z88.8 Allergy status to other drugs, medicaments and biological substances

== ENCOUNTER → 2021-03-17 | Outpatient (CLI) | payer MEDICARE, MEDICAID ==
[~2021-03-17] MED LIST changes: +GABA-282 PO; -GABA-843 PO
--- NOTE | 2021-03-19 00:30 | ECWPNPC ---
PATIENT NAME: ASHLEY MARTINEZ : 1950 GENDER: FEMALE VISIT DATE: 03/17/2021 DISCHARGE DATE: 03/17/21942 VISIT LOCKED DATE TIME: PHYSICIAN: ANA BLOOM RESOURCE: ANA BLOOM REASON FOR APPOINTMENT 1. MED MANAGEMENT HISTORY OF PRESENT ILLNESS GENERAL: -. FALL RISK SCREENING: SCREENING 30 OR 40 FALL DID NOT GO TO THE ER. PAIN SCREENING: PATIENT HAS A COMPLAINT OF ACUTE OR CHRONIC PAIN :YES LOCATION OF PAIN:KNEES INTENSITY OF PAIN (SCALE OF 1 TO 10):3 WHAT DOES YOUR PAIN FEEL LIKE:THROBBING DURATION:CONTINOUS, CONSTANT, ALL DAY PAIN IS INCREASED BY:ACTIVITIES PAIN IS DECREASED BY:USE OF PAIN MEDICATIONS NURSING NOTE: -. PAIN CENTER INTAKE QUESTIONS: DO YOU HAVE A HISTORY OF MRSA? :NO DO YOU TAKE A BLOOD THINNERS? :NO DO YOU HAVE ANY BLEEDING DISORDERS? :NO ANY NEW NUMBNESS OR WEAKNESS IN YOUR LEGS OR ARMS? :NO ANY PACEMAKER,DEFIBRILLATOR, OR DORSAL COLUMN STIMULATOR? :NO DO YOU HAVE ANY RASHES OR OPEN SORES? :NO ARE YOU ALLERGIC TO IV DYE? :NO ARE YOU DIABETIC? :NO ANY NEW PROBLEMS WITH YOUR MEDICATIONS? :NO HAVE YOU RECEIVED A VACCINE IN THE PAST 30 DAYS? :YES PATIENT HAD A FLU SHOT 2 WEEKS AGO DO YOU PLAN TO RECEIVE A VACCINE IN THE NEXT 21 DAYS? :NO DO YOU NEED ANY PRESCRIPTION? :NO DO YOU TAKE ANY IMMUNOSUPPRESSIVE MEDICATIONS? :NO CURRENT MEDICATIONS TAKING ASPIR-81 81 MG TABLET DELAYED RELEASE 1 TABLET ORALLY ONCE A DAY TAKING BREO ELLIPTA 200-25 MCG/INH AEROSOL POWDER BREATH ACTIVATED 1 PUFF INHALATION ONCE A DAY TAKING INCRUSE ELLIPTA 62.5 MCG/INH AEROSOL POWDER BREATH ACTIVATED 1 PUFF INHALATION ONCE A DAY TAKING LEVALBUTEROL TARTRATE 45 MCG/ACT AEROSOL INHALE TWO PUFFS BY MOUTH EVERY 4 HOURS NEEDED INHALATION TAKING ATORVASTATIN CALCIUM 80 MG TABLET 1 TABLET ORALLY ONCE A DAY TAKING LIDOCAINE 5 % OINTMENT 1 APPLICATION NEEDED EXTERNALLY THREE TIMES A DAY TAKING LEVOTHYROXINE SODIUM 125 MCG TABLET 1 TABLET IN THE MORNING ON AN EMPTY STOMACH ORALLY ONCE A DAY TAKING SIMVASTATIN 10 MG TABLET 1 TABLET IN THE EVENING ORALLY ONCE A DAY TAKING TYLENOL 1 -2 TABS ORAL EVERY 6 HOURS PRN TAKING LEVOXYL 125 MCG TABLET 1 TABLET ON AN EMPTY STOMACH IN THE MORNING ORALLY ONCE A DAY TAKING CARVEDILOL 3.125 MG TABLET 1 TABLET ORALLY TWICE A DAY TAKING LOSARTAN POTASSIUM 100 MG TABLET 1 TABLET ORALLY ONCE A DAY TAKING TRAMADOL HCL 50 MG TABLET 1 TABLET NEEDED ORALLY EVERY 4 HRS NEEDED FOR PAIN MDD6 NOT-TAKING ALBUTEROL SULFATE (2.5 MG/3ML) 0.083% NEBULIZATION SOLUTION 3 ML INHALATION THREE TIMES A DAY NOT-TAKING VENTOLIN HFA 108 (90 BASE) MCG/ACT AEROSOL SOLUTION 1 PUFF NEEDED INHALATION EVERY 4 HRS MEDICATION LIST REVIEWED AND RECONCILED WITH THE PATIENT PAST MEDICAL HISTORY COPD/ SPIRO10/10/ PULM NODULE- LILLIANA MYASTHENIA GRAVIS- NCN- S BARBARA TOBACCO ABUSE- QUIT 01/14. BACK PAIN HYPOTHYROIDISM CHEST X-RAY 10/10/13-STABLE CHRONIC CHANGES. NO ACUTE CONSOLIDATION/EFFUSION/PNEUMOTHORAX NUCLEAR STRESS STUDY 05/02 [facility] NORMAL PERFUSION/EF 79% EKG 05/02 NSR/ EKG 11/08/13 NSR, NO CHANGE FROM PREVIOUS MRI BRAIN 11/26/13 NML ECHO [facility] 04/25/14- NML SYST AND DIASTOLIC FUNCTION, TR MR MAMMO- REFUSES DEXA- REFUSES XR LS SPINE- MILD DDD L5-S1 SIMILAR TO 09/01 PREMATURE SURGICAL MENOPAUSE AGE 27/ERTX38 YRS CANNY-ECHO/STRESS LOW RISK 11/10 ASTHMA ALLERGIES AMOXICILLIN: HIVES - ALLERGY TETRACYCLINE HCL: HIVES - ALLERGY COMPAZINE: HIVES - ALLERGY IBUPROFEN: HIGH DOSES N/V - SIDE EFFECTS ASPIRIN: HIGH DOSES N/V - SIDE EFFECTS VITAL SIGNS WT 180 LBS, HT 64 IN, BMI 30.89 INDEXNV PATIENT CAME TO HER APPOINTMENT FEELING VERY SICK, UNABLE TO TAKE VITALS SELAM WHIPPLE. ASSESSMENTS CHRONIC PRESCRIPTION OPIATE USE - Z79.891 (PRIMARY) TREATMENT CHRONIC PRESCRIPTION OPIATE USE LAB: URINE TEST GROUP [facility] 03/17/2021 9:39:26 AM > LAST DOSE : TRAMADOL 03/17/2021 @6AM DISPOSITION & COMMUNICATION ELECTRONICALLY SIGNED BY DEVIN PEPE ON 03/18/2021 AT 08:38 AM EDT DISCLAIMER : THIS IS A VISIT SUMMARY EXTRACTED FROM THE [employer] CHART. IT IS NOT A COPY OF THE [employer] PROGRESS NOTE. MTDD
== END ==
LOC: M PAIN 09:45
PROVIDERS: ATTEND Family Medicine
DX: Z79.891 Long term (current) use of opiate analgesic (principal)

== ENCOUNTER → 2021-03-30 | Outpatient (CLI) | payer MEDICARE, MEDICAID ==
--- NOTE | 2021-03-30 13:53 | REP ---
INDICATION: NICOTINE DEPENDENCE. COMPARISON: Comparison is made with multiple prior CT studies of the chest, the most recent which is from January 20, 2020. The most remote available chest CT study is 27 July 2014.. TECHNIQUE: Dose reduction was performed utilizing CARE dose with automated adjustment of the kV and MAS according to patient size; iterative reconstruction, automated exposure control, as well as adaptive dose shielding. Helical scanning is acquired and 3 mm axial images re-formatted at lung only windows. 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 There is mild linear fibrosis in the right lower lobe and in the lingular segment of the left upper lobe at the lung bases. This is unchanged. There is a 6 mm nodule in the right upper lobe displayed on page 41 of 105 series 201 of today's study. There is a rectangular pleural plaque in the right upper lobe posteriorly displayed on page 27 of 105. Both of these are completely unchanged from the July 27, 2014 prior study. There are emphysematous changes in the upper lobes bilaterally also unchanged. No new pulmonary nodule or mass lesion is observed. No endobronchial abnormality is appreciated. There is an area of pleuroparenchymal fibrosis posteriorly in the left upper lobe which is unchanged from patient's prior studies dating back to 2013. IMPRESSION: Lung RADS category 2 findings. Repeat screening exam suggested in 1 year. <Electronically signed by Wicho Lopez > 03/30/21 [id number]
== END ==
LOC: M RAD 13:15
PROVIDERS: ATTEND Internal Medicine Pulmonary Disease
DX: Z12.2 Encounter for screening for malignant neoplasm of respiratory organs (principal); F17.210 Nicotine dependence, cigarettes, uncomplicated

== ENCOUNTER 2021-04-18 16:42 | Emergency (ER) | payer MEDICARE, MEDICAID ==
[~2021-04-18] VITALS: Ht 160 cm; Wt 73.6 kg
[2021-04-18 16:43] VITALS: BP 149/79
[2021-04-18] MEDS ORDERED: TRAM50TA2 (16:51)
[2021-04-18] MEDS ORDERED: LEVA45AE (16:51)
[2021-04-19] MEDS ORDERED: PROAAER10 INH (12:19)
[2021-04-19] MEDS ORDERED: ALBU83IN NEB (12:19)
[2021-04-19] MEDS ORDERED: MOXI400T11 PO (12:42)
== END 2021-04-18 17:46 | disposition left against medical advice (07) ==
LOC: M ED 16:42
DX: Z53.21 Procedure and treatment not carried out due to patient leaving prior to being seen by health care provider (principal)

== ENCOUNTER 2021-04-19 10:21 | Emergency (ER) | payer MEDICARE, MEDICAID ==
[~2021-04-19] VITALS: Ht 160 cm; Wt 73.6 kg
[~2021-04-19 10:21] MED LIST changes: +LEVA45AE; +TRAM50TA2
--- NOTE | 2021-04-19 11:03 | REP ---
INDICATION: DYSPNEA/COUGH COMPARISON: 02/20/2017 TECHNIQUE: Portable AP view of the chest FINDINGS: The mediastinum and cardiac silhouette are stable and within normal limits for portable technique. The lung chew suggest subtle left lower lobe infiltrate and minimal bibasilar scarring. Skeletal structures are intact. IMPRESSION: Very subtle acute left lower lobe infiltrate cannot be excluded. <Electronically signed by Chente Park > 04/19/21 1100
[2021-04-19 11:14] LABS: BASO # 0.1 10^3/uL (0.0-0.2); BASO % 0.6 % (0.0-1.0); EOS # 0.3 10^3/uL (0.0-0.5); EOS % 3.5 % (0.0-3.0); HEMATOCRIT 38.4 % (36.0-47.0); HEMOGLOBIN 11.8 g/dl (12.0-15.5); LYMPH # 1.7 10^3/uL (1.5-5.0); LYMPH % 19.1 % (24.0-44.0); MEAN CORPUSCULAR HEMOGLOBIN 29.5 pg (27.0-33.0); MEAN CORPUSCULAR HGB CONC 30.7 g/dl (32.0-36.5); MONO # 0.7 10^3/uL (0.0-0.8); MONO % 8.2 % (2.0-8.0); NEUTROPHILS # 6.1 10^3/uL (1.5-8.5); NEUTROPHILS % 68.3 % (36.0-66.0); PLATELET COUNT, AUTOMATED 190 10^3/uL (150-450); WHITE BLOOD COUNT 8.9 10^3/uL (4.0-10.0)
[2021-04-19 11:42] LABS: ALBUMIN 3.5 GM/DL (3.2-5.2); ALT/SGPT 34 U/L (12-78); BILIRUBIN,DIRECT 0.2 MG/DL (0.0-0.2); BILIRUBIN,TOTAL 0.5 MG/DL (0.2-1.0); BLOOD UREA NITROGEN 34 MG/DL (7-18); CARBON DIOXIDE LEVEL 22 MEQ/L (21-32); CHLORIDE LEVEL 114 MEQ/L (98-107); CK-MB VALUE MASS 4.1 NG/ML (<3.6); CPK CREATINE PHOSPHOKINASE 201 U/L (26-192); CREATININE FOR GFR 1.08 MG/DL (0.55-1.30); GLOMERULAR FILTRATION RATE 53.7 (>45); GLUCOSE, FASTING 89 MG/DL (70-100); MB/CK RELATIVE INDEX 2.04 (< OR =4); POTASSIUM SERUM 4.5 MEQ/L (3.5-5.1); SODIUM LEVEL 142 MEQ/L (136-145); TOTAL PROTEIN 6.7 GM/DL (6.4-8.2); TROPONIN I < 0.02 NG/ML (< 0.10)
[2021-04-19] MEDS ORDERED: IPRATROPIUM 0.5MG/ALBUTEROL 2.5MG INH SOL UD 3ML (DUONEB) NEB SCH (12:10)
[2021-04-19 12:15] VITALS: BP 159/76
[2021-04-19] MEDS ORDERED: PROAAER10 INH (12:19)
[2021-04-19] MEDS ORDERED: ALBU83IN NEB (12:19)
[2021-04-19 12:31] LABS: NT-PRO BNP 893 PG/ML (<125)
[2021-04-19] MEDS ORDERED: MOXI400T11 PO (12:42)
--- NOTE | 2021-04-19 20:14 | ECGEPIP ---
[facility] - ED Test Date: 2021-04-19 Pat Name: ASHLEY MARTINEZ Department: Room: - Gender: Female Small Products I Assembler: BARTOLO : 1950 Requested By: Alonso Carrillo Order Number: [id number] Reading MD: Jose Antonio Reed Measurements Intervals [place] Rate: 63 P: 76 RI: 158 QRS: 35 QRSD: 78 T: 34 QT: 390 QTc: 399 Interpretive Statements Normal sinus rhythm rate decreased when compared to tracing done 11-12-19 Electronically Signed on 04-19-2021 20:13:39 EDT by Jose Antonio Reed
== END 2021-04-19 13:02 | disposition home or self-care (01) ==
LOC: M ED 10:21
DX: J18.1 Lobar pneumonia, unspecified organism (principal); J44.1 Chronic obstructive pulmonary disease with (acute) exacerbation; R60.0 Localized edema; I10 Essential (primary) hypertension; E11.9 Type 2 diabetes mellitus without complications; F17.200 Nicotine dependence, unspecified, uncomplicated; Z88.1 Allergy status to other antibiotic agents; Z88.0 Allergy status to penicillin; Z88.8 Allergy status to other drugs, medicaments and biological substances; Z79.899 Other long term (current) drug therapy; Z79.82 Long term (current) use of aspirin

== ENCOUNTER 2021-06-17 12:26 | Emergency (ER) | payer MEDICARE, MEDICAID ==
[~2021-06-17] VITALS: Ht 160 cm; Wt 73.2 kg
[~2021-06-17 12:26] MED LIST changes: +ALBU83IN NEB; +MOXI400T11 PO; +PROAAER10 INH
[2021-06-17 13:02] LABS: BASO # 0.1 10^3/uL (0.0-0.2); BASO % 0.7 % (0.0-1.0); EOS # 0.2 10^3/uL (0.0-0.5); EOS % 1.4 % (0.0-3.0); HEMATOCRIT 40.3 % (36.0-47.0); HEMOGLOBIN 12.4 g/dl (12.0-15.5); LYMPH # 2.3 10^3/uL (1.5-5.0); LYMPH % 20.5 % (24.0-44.0); MEAN CORPUSCULAR HEMOGLOBIN 28.8 pg (27.0-33.0); MEAN CORPUSCULAR HGB CONC 30.8 g/dl (32.0-36.5); MEAN CORPUSCULAR VOLUME 93.7 fl (80.0-96.0); MONO # 0.7 10^3/uL (0.0-0.8); MONO % 6.1 % (2.0-8.0); NEUTROPHILS % 70.2 % (36.0-66.0); PLATELET COUNT, AUTOMATED 241 10^3/uL (150-450); WHITE BLOOD COUNT 11.4 10^3/uL (4.0-10.0)
[2021-06-17 13:34] LABS: ALBUMIN 3.3 GM/DL (3.2-5.2); ALT/SGPT 32 U/L (12-78); BILIRUBIN,DIRECT 0.1 MG/DL (0.0-0.2); BILIRUBIN,TOTAL 0.4 MG/DL (0.2-1.0); BLOOD UREA NITROGEN 36 MG/DL (7-18); CALCIUM LEVEL 9.3 MG/DL (8.8-10.2); CARBON DIOXIDE LEVEL 26 MEQ/L (21-32); CHLORIDE LEVEL 110 MEQ/L (98-107); CK-MB VALUE MASS 2.2 NG/ML (<3.6); CPK CREATINE PHOSPHOKINASE 116 U/L (26-192); CREATININE FOR GFR 1.03 MG/DL (0.55-1.30); GLOMERULAR FILTRATION RATE 56.7 (>45); GLUCOSE, FASTING 105 MG/DL (70-100); POTASSIUM SERUM 4.9 MEQ/L (3.5-5.1); SODIUM LEVEL 142 MEQ/L (136-145); TOTAL PROTEIN 6.9 GM/DL (6.4-8.2); TROPONIN I < 0.02 NG/ML (< 0.10)
[2021-06-17] MEDS ORDERED: ISOVUE-370 76% 100ML VIAL As Ordered ONE (13:42)
[2021-06-17] MEDS ORDERED: methylPREDNISolone 125MG 2ML VIAL IV ONE (14:10)
--- NOTE | 2021-06-17 14:17 | REP ---
INDICATION: sob. COMPARISON: AP portable 06/17/2021, 04/19/2021; low-dose screening lung CT 03/30/2021. TECHNIQUE: CT angiogram chest performed following the intravenous administration of 75 cc of Isovue 370. Sagittal and coronal reconstruction images are performed. FINDINGS: Lungs: There is inferior lingular segment chronic fibro atelectatic change along the anterior margin of the major fissure the anterior left lung base near the heart border and lateral pleural margin. This corresponds to the patchy density seen in the left CP angle on chest x-ray. It is unchanged from the appearance on the low-dose screening CT 03/30/2021. There is no pleural effusion either side but some minor dependent atelectasis and curvilinear deep sulcal atelectasis in the right lower lobe posterior and medial basal segments. There is a pleural base nodule posteriorly in the right upper lobe on image 30 similar to the previous studies a left upper lobe pleural based nodule is also seen again and unchanged. Hyperinflation with some emphysematous changes. Anterolaterally in the right upper lobe on image 42 is another small nodule unchanged from recent screening CT. Few other scattered small nodules are seen. No new nodules, acute infiltrate, pleural effusion or parenchymal mass is identified. Mediastinum: No adenopathy. Pulmonary arteries: There is no CT evidence of pulmonary thromboembolism. No vessel cut off. Lali: No adenopathy. Axilla: No adenopathy. Pleura: No effusion, pleural thickening or pleural based mass. Few subpleural nodules are seen as described above. These are stable.. Heart: Not enlarged. Thoracic aorta: No aneurysm or dissection. Scattered calcifications noted. Upper abdominal structures: Some mild global atrophy of the right kidney with compensatory hypertrophy of the left kidney suggested. Otherwise unremarkable. Visualized osseous structures: Unremarkable. IMPRESSION: No CT evidence of pulmonary embolism. Chronic left base atelectatic changes as seen on radiograph. No effusion or acute infiltrate. Few scattered noncalcified pulmonary nodules as on previous low-dose CT, unchanged. Heart size not enlarged. The aorta unremarkable for age. No mediastinal or hilar adenopathy/mass. <Electronically signed by Seymour Izquierdo > 06/17/21 [id number]
[2021-06-17 16:08] VITALS: BP 161/67
[2021-06-17] MEDS ORDERED: LEVA45AE INH (16:25)
--- NOTE | 2021-06-17 17:40 | ECGEPIP ---
[facility] [place] - ED Test Date: 2021-06-17 Pat Name: ASHLEY MARTINEZ Department: Room: - Gender: Female [employer]ist: RAISA : 1950 Requested By: Nancy Mcneill Order Number: [id number] Reading MD: Jose Antonio Reed Measurements Intervals Rindge Rate: 81 P: 71 ME: 126 QRS: 30 QRSD: 76 T: 39 QT: 344 QTc: 399 Interpretive Statements Normal sinus rhythm Similar to tracing done 04-19-21 Electronically Signed on 06-17-2021 17:40:02 EDT by Jose Antonio Reed
--- NOTE | 2021-06-17 18:48 | REP ---
INDICATION: DYSPNEA/COUGH. COMPARISON: 04/19/2021, low-dose CT 03/30/2021 TECHNIQUE: AP portable FINDINGS: Lungs are well inflated. There is no definite effusion. There is less density in the left CP angle that on the previous study. This may reflect some residual scar fibrosis. No dense consolidation or parenchymal mass. The heart is not enlarged. There is some venous hypertension without pulmonary edema. The aorta and airway were intact. No widening of the mediastinum. No acute bony finding. There is no free air under the diaphragm IMPRESSION: 1. No cardiomegaly but some venous hypertension noted without pulmonary edema or definite effusion. 2. Left CP angle with some minor patchy density, less compared to the previous study, suggesting some residual scar or fibrotic changed. There is no dense consolidation, parenchymal mass, aortic aneurysm or widening of the mediastinum. <Electronically signed by Seymour Izquierdo > 06/17/21 [id number]
== END 2021-06-17 16:28 | disposition home or self-care (01) ==
LOC: EDBD 12:26 → M ED 12:26
DX: J44.1 Chronic obstructive pulmonary disease with (acute) exacerbation (principal); I10 Essential (primary) hypertension; G70.00 Myasthenia gravis without (acute) exacerbation; E07.9 Disorder of thyroid, unspecified; F17.290 Nicotine dependence, other tobacco product, uncomplicated; Z88.1 Allergy status to other antibiotic agents; Z88.0 Allergy status to penicillin; Z88.8 Allergy status to other drugs, medicaments and biological substances; Z79.899 Other long term (current) drug therapy; Z79.51 Long term (current) use of inhaled steroids; Z79.82 Long term (current) use of aspirin
CPT/HCPCS: 71045; 71275; 80048; 80076; 82550; 82553; 84484; 85025; 93005; 93041; 94760; 99285; Q9967

== ENCOUNTER → 2021-07-08 | Outpatient (CLI) | payer MEDICARE, MEDICAID ==
[~2021-07-08] MED LIST changes: +LEVA45AE INH
== END ==
LOC: M PAIN 13:45
PROVIDERS: ATTEND Nurse Practitioner Family
DX: Z53.29 Procedure and treatment not carried out because of patient's decision for other reasons (principal)

== ENCOUNTER → 2021-09-16 | Outpatient (CLI) | payer MEDICARE, MEDICAID | LOC: M PAIN 14:15 | PROVIDERS: ATTEND Anesthesiology | DX: Z53.21 Procedure and treatment not carried out due to patient leaving prior to being seen by health care provider (principal) ==

== ENCOUNTER → 2021-10-06 | Outpatient (CLI) | payer MEDICARE, MEDICAID | LOC: M PAIN 15:00 | PROVIDERS: ATTEND Anesthesiology | DX: M25.561 Pain in right knee (principal); G89.29 Other chronic pain; J44.9 Chronic obstructive pulmonary disease, unspecified; G70.00 Myasthenia gravis without (acute) exacerbation; E03.9 Hypothyroidism, unspecified; Z87.891 Personal history of nicotine dependence; Z88.2 Allergy status to sulfonamides; Z88.6 Allergy status to analgesic agent; Z88.8 Allergy status to other drugs, medicaments and biological substances; Z79.51 Long term (current) use of inhaled steroids; Z79.82 Long term (current) use of aspirin; Z79.899 Other long term (current) drug therapy ==

== ENCOUNTER → 2021-11-12 | Outpatient (CLI) | payer MEDICARE, MEDICAID | LOC: M PAIN 10:30 | PROVIDERS: ATTEND Nurse Practitioner Family | DX: M25.561 Pain in right knee (principal); M25.562 Pain in left knee; G89.29 Other chronic pain; J44.9 Chronic obstructive pulmonary disease, unspecified; G70.00 Myasthenia gravis without (acute) exacerbation; E03.9 Hypothyroidism, unspecified; Z87.891 Personal history of nicotine dependence; Z88.1 Allergy status to other antibiotic agents; Z88.6 Allergy status to analgesic agent; Z88.8 Allergy status to other drugs, medicaments and biological substances; Z79.51 Long term (current) use of inhaled steroids; Z79.82 Long term (current) use of aspirin; Z79.899 Other long term (current) drug therapy ==

== ENCOUNTER → 2022-01-07 | Outpatient (CLI) | payer MEDICARE, MEDICAID ==
[~2022-01-07] MED LIST changes: +LOSA100T45 PO; -LOSA100T50 PO
== END ==
LOC: M PAIN 13:45
PROVIDERS: ATTEND Nurse Practitioner Family
DX: G89.29 Other chronic pain (principal); M25.561 Pain in right knee; M25.562 Pain in left knee; J44.9 Chronic obstructive pulmonary disease, unspecified; G70.00 Myasthenia gravis without (acute) exacerbation; M54.9 Dorsalgia, unspecified; E03.9 Hypothyroidism, unspecified; J45.909 Unspecified asthma, uncomplicated; Z87.891 Personal history of nicotine dependence; Z79.891 Long term (current) use of opiate analgesic; Z79.82 Long term (current) use of aspirin; Z79.899 Other long term (current) drug therapy; Z88.0 Allergy status to penicillin; Z88.6 Allergy status to analgesic agent; Z88.8 Allergy status to other drugs, medicaments and biological substances

== ENCOUNTER → 2022-04-20 | Outpatient (CLI) | payer MEDICARE, MEDICAID | LOC: M PAIN 08:45 | PROVIDERS: ATTEND Anesthesiology | DX: Z79.891 Long term (current) use of opiate analgesic (principal) ==

== ENCOUNTER → 2022-07-13 | Outpatient (CLI) | payer MEDICARE, MEDICAID ==
[~2022-07-13] MED LIST changes: +ALBU2.5V10 NEB; -ALBU83IN NEB
== END ==
LOC: M PAIN 13:00
PROVIDERS: ATTEND Nurse Practitioner Family
DX: Z79.891 Long term (current) use of opiate analgesic (principal)

== ENCOUNTER → 2022-12-16 | Outpatient (CLI) | payer MEDICARE, MEDICAID ==
[~2022-12-16] MED LIST changes: +NYST-38; -NYST50SS
== END ==
LOC: M PAIN 13:45
PROVIDERS: ATTEND Nurse Practitioner Family
DX: M25.561 Pain in right knee (principal); G89.29 Other chronic pain; J44.9 Chronic obstructive pulmonary disease, unspecified; G70.00 Myasthenia gravis without (acute) exacerbation; E03.9 Hypothyroidism, unspecified; Z87.891 Personal history of nicotine dependence; Z88.1 Allergy status to other antibiotic agents; Z88.6 Allergy status to analgesic agent; Z88.8 Allergy status to other drugs, medicaments and biological substances; Z79.51 Long term (current) use of inhaled steroids; Z79.82 Long term (current) use of aspirin; Z79.890 Hormone replacement therapy; Z79.899 Other long term (current) drug therapy

== ENCOUNTER 2023-05-11 05:07 | Emergency (ER) | payer MEDICARE, MEDICAID ==
[~2023-05-11] VITALS: Ht 160 cm; Wt 45.0 kg
[~2023-05-11 05:07] MED LIST changes: -LOSA100T45 PO; +LOSA100T46 PO
[2023-05-11] MEDS ORDERED: IPRATROPIUM 0.5MG/ALBUTEROL 2.5MG INH SOL UD 3ML (DUONEB) NEB ONE ×2 (05:20→07:15)
[2023-05-11] MEDS ORDERED: IPRATROPIUM 0.5MG/ALBUTEROL 2.5MG INH SOL UD 3ML (DUONEB) As Ordered ONE (05:20)
[2023-05-11 06:17] LABS: BASO # 0.1 10^3/uL (0.0-0.2); BASO % 0.8 % (0.0-1.0); EOS # 0.2 10^3/uL (0.0-0.5); EOS % 3.1 % (0.0-3.0); HEMATOCRIT 33.6 % (36.0-47.0); HEMOGLOBIN 10.5 g/dl (12.0-15.5); LYMPH % 27.2 % (24.0-44.0); MEAN CORPUSCULAR HEMOGLOBIN 31.3 pg (27.0-33.0); MEAN CORPUSCULAR HGB CONC 31.3 g/dl (32.0-36.5); MEAN CORPUSCULAR VOLUME 100.3 fl (80.0-96.0); MONO # 0.7 10^3/uL (0.0-0.8); MONO % 9.6 % (2.0-8.0); NEUTROPHILS # 4.4 10^3/uL (1.5-8.5); NEUTROPHILS % 58.9 % (36.0-66.0); PLATELET COUNT, AUTOMATED 130 10^3/uL (150-450); RED BLOOD COUNT 3.35 10^6/uL (4.00-5.40); WHITE BLOOD COUNT 7.4 10^3/uL (4.0-10.0)
[2023-05-11 06:35] LABS: ALBUMIN 3.1 G/DL (3.2-5.2); ALKALINE PHOSPHATASE 83 U/L (46-116); ALT/SGPT 36 U/L (7.0-40); AST/SGOT 37 U/L (<34); BILIRUBIN,DIRECT 0.3 MG/DL (<0.4); BILIRUBIN,TOTAL 0.7 MG/DL (0.3-1.2); BLOOD UREA NITROGEN 23 MG/DL (9-23); CALCIUM LEVEL 8.8 MG/DL (8.3-10.6); CARBON DIOXIDE LEVEL 21 MMOL/L (20-31); CHLORIDE LEVEL 111 MMOL/L (98-107); CK-MB VALUE MASS 1.7 NG/ML (<3.6); CPK CREATINE PHOSPHOKINASE 71 U/L (34-145); CREATININE FOR GFR 0.96 MG/DL (0.55-1.30); GLOMERULAR FILTRATION RATE > 60.0 (>39); GLUCOSE, FASTING 87 MG/DL (74-106); MB/CK RELATIVE INDEX 2.39 (< OR =4); POTASSIUM SERUM 4.7 MMOL/L (3.5-5.1); SODIUM LEVEL 137 MMOL/L (136-145); TOTAL PROTEIN 6.1 G/DL (5.7-8.2)
[2023-05-11 06:37] LABS: THYROID STIMULATING HORMONE 0.274 uIU/ML (0.55-4.78)
[2023-05-11 06:42] LABS: INR 1.04; PROTHROMBIN TIME 13.8 SECONDS (12.5-14.5)
[2023-05-11] MEDS ORDERED: predniSONE 20 MG TAB PO ONE (07:15)
[2023-05-11 07:39] LABS: CK-MB VALUE MASS 1.7 NG/ML (<3.6); MB/CK RELATIVE INDEX 2.39 (< OR =4)
[2023-05-11] MEDS ORDERED: ASPIRIN 81MG CHEW TABLET PO ONE (07:55)
[2023-05-11] MEDS ORDERED: ISOVUE-370 76% 100ML VIAL As Ordered ONE (07:55)
[2023-05-11] MEDS ORDERED: NITROGLYCERIN 0.4MG SUBL TABLET SL PRN (07:55)
[2023-05-11 08:19] VITALS: BP 134/74
[2023-05-11 10:33] VITALS: BP 161/76; TEMP 98.4; O2SAT 94
== END 2023-05-11 10:40 | disposition left against medical advice (07) ==
LOC: EDBD 05:07 → M ED 05:07
DX: I21.4 Non-ST elevation (NSTEMI) myocardial infarction (principal); I24.9 Acute ischemic heart disease, unspecified; I10 Essential (primary) hypertension; J44.9 Chronic obstructive pulmonary disease, unspecified; J45.909 Unspecified asthma, uncomplicated; E78.5 Hyperlipidemia, unspecified; E07.9 Disorder of thyroid, unspecified; G70.00 Myasthenia gravis without (acute) exacerbation; R91.1 Solitary pulmonary nodule; Z87.891 Personal history of nicotine dependence; J98.11 Atelectasis; Z88.1 Allergy status to other antibiotic agents; Z88.0 Allergy status to penicillin; Z88.8 Allergy status to other drugs, medicaments and biological substances; Z79.899 Other long term (current) drug therapy; Z79.82 Long term (current) use of aspirin; Z79.890 Hormone replacement therapy; Z79.891 Long term (current) use of opiate analgesic
CPT/HCPCS: 71045; 71275; 74177; 80048; 80076; 82550; 82553; 83605; 83880; 84436; 84443; 84484; 85025; 85610; 87040; 87486; 87581; 87633; 87798; 93005; 93041; 94640; 94760; 96374; 96376; 99285; J7512; Q9967

== ENCOUNTER 2023-05-11 12:41 | Emergency (ER) | payer MEDICARE, MEDICAID ==
[~2023-05-11] VITALS: Ht 160 cm; Wt 61.3 kg
[2023-05-11] MEDS ORDERED: HEPARIN DRIP 25,000 UNITS in IV 1 EA IV SCH ×2 (13:10→13:15)
[2023-05-11] MEDS ORDERED: HEPARIN SOD (PORCINE) 5000UNITS/ML 1ML VIAL/SYRINGE IV ONE (13:10)
[2023-05-11 14:26] VITALS: BP 137/70; TEMP 99.1; O2SAT 95
[2023-05-11] MEDS ORDERED: ONDANSETRON 4MG 2ML VIAL As Ordered ONE (14:27)
[2023-05-11] MEDS ORDERED: ONDANSETRON 4MG 2ML VIAL IV ONE (14:30)
== END 2023-05-11 14:37 | disposition short-term general hospital (02) ==
LOC: M ED 12:41
DX: I21.4 Non-ST elevation (NSTEMI) myocardial infarction (principal); I10 Essential (primary) hypertension; E78.5 Hyperlipidemia, unspecified; J45.909 Unspecified asthma, uncomplicated; J44.9 Chronic obstructive pulmonary disease, unspecified; E07.9 Disorder of thyroid, unspecified; Z87.891 Personal history of nicotine dependence

== ENCOUNTER → 2023-09-28 | Outpatient (CLI) | payer MEDICARE, MEDICAID | LOC: M RAD 09:43 | PROVIDERS: ATTEND Internal Medicine Pulmonary Disease | DX: U07.1 COVID-19 (principal) ==

== ENCOUNTER 2023-12-24 08:35 | Observation (INO) | payer MEDICARE, MEDICAID ==
[~2023-12-24] VITALS: Ht 160 cm; Wt 65.4 kg
[~2023-12-24 08:35] MED LIST changes: -ATOR80TA59; +ATOR80TA59 PO; -LEVO125T4
[2023-12-24 09:04] LABS: VENOUS BASE EXCESS -6.1 (-2.0-2.0); VENOUS HCO3 21.7 MMOL/L (23.0-27.0); VENOUS O2 SATURATION 59.1 % (60.0-80.0); VENOUS PARTIAL PRESSURE CO2 52.1 mmHg (38.0-50.0); VENOUS PARTIAL PRESSURE O2 33.2 mmHg (30.0-50.0); VENOUS PH 7.237 UNITS (7.330-7.430); VENOUS STANDARD HCO3 18.7 MMOL/L; VENOUS TOTAL CO2 23.3 MMOL/L (24.0-28.0)
[2023-12-24] MEDS ORDERED: CHLO125TA PO (09:05)
[2023-12-24] MEDS ORDERED: ATEN25TA PO (09:05)
[2023-12-24] MEDS ORDERED: SPIR-10 PO (09:05)
[2023-12-24] MEDS: ASPIRIN 81MG CHEW TABLET PO ONE (09:08)
[2023-12-24] MEDS: methylPREDNISolone 125MG 2ML VIAL IV ONE (09:08)
[2023-12-24 09:09] LABS: BASO # 0.1 10^3/uL (0.0-0.2); BASO % 0.7 % (0.0-1.0); EOS # 0.2 10^3/uL (0.0-0.5); EOS % 2.8 % (0.0-3.0); HEMATOCRIT 38.8 % (36.0-47.0); HEMOGLOBIN 11.9 g/dl (12.0-15.5); LYMPH # 2.2 10^3/uL (1.5-5.0); MEAN CORPUSCULAR HEMOGLOBIN 29.2 pg (27.0-33.0); MEAN CORPUSCULAR HGB CONC 30.7 g/dl (32.0-36.5); MEAN CORPUSCULAR VOLUME 95.1 fl (80.0-96.0); MONO # 0.8 10^3/uL (0.0-0.8); MONO % 8.7 % (2.0-8.0); NEUTROPHILS # 5.3 10^3/uL (1.5-8.5); NEUTROPHILS % 61.5 % (36.0-66.0); PLATELET COUNT, AUTOMATED 204 10^3/uL (150-450); RED BLOOD COUNT 4.08 10^6/uL (4.00-5.40); WHITE BLOOD COUNT 8.6 10^3/uL (4.0-10.0)
[2023-12-24] MEDS: LORazepam 1 MG TAB PO STA (09:12)
[2023-12-24] MEDS: IPRATROPIUM 0.5MG/ALBUTEROL 2.5MG INH SOL UD 3ML (DUONEB) NEB PRN (09:13)
[2023-12-24 09:19] LABS: INR 0.98; PROTHROMBIN TIME 12.7 SECONDS (12.5-14.5)
[2023-12-24 09:20] LABS: PARTIAL THROMBOPLASTIN TIME 35.5 SECONDS (24.8-34.2)
[2023-12-24] MEDS: predniSONE 20 MG TAB PO ONE (09:28)
[2023-12-24 09:34] LABS: CK-MB VALUE MASS < 1.0 NG/ML (<3.6); LIPASE 36 U/L (12-53)
[2023-12-24 09:36] LABS: ALKALINE PHOSPHATASE 100 U/L (46-116); ALT/SGPT 41 U/L (7.0-40); AST/SGOT 55 U/L (<34); BILIRUBIN,DIRECT 0.3 MG/DL (<0.4); BILIRUBIN,TOTAL 0.7 MG/DL (0.3-1.2); BLOOD UREA NITROGEN 22 MG/DL (9-23); CALCIUM LEVEL 9.1 MG/DL (8.3-10.6); CARBON DIOXIDE LEVEL 22 MMOL/L (20-31); CHLORIDE LEVEL 112 MMOL/L (98-107); CPK CREATINE PHOSPHOKINASE 55 U/L (34-145); CREATININE FOR GFR 1.72 MG/DL (0.55-1.30); GLOMERULAR FILTRATION RATE 31.1 (>39); GLUCOSE, FASTING 82 MG/DL (74-106); MB/CK RELATIVE INDEX 1.81 (< OR =4); POTASSIUM SERUM 5.8 MMOL/L (3.5-5.1); SODIUM LEVEL 140 MMOL/L (136-145); TOTAL PROTEIN 6.7 G/DL (5.7-8.2)
[2023-12-24 09:38] LABS: THYROID STIMULATING HORMONE 0.058 uIU/ML (0.55-4.78)
[2023-12-24 09:39] LABS: FREE T4 1.26 NG/DL (0.89-1.76)
[2023-12-24 10:09] LABS: ABG BASE EXCESS -6.1 (-2.0-2.0); ABG HCO3 18.8 MMOL/L (22.0-26.0); ABG O2 SATURATION 96.2 % (95.0-99.0); ABG PARTIAL PRESSURE O2 85.8 mmHg (75.0-100.0); ABG STANDARD HCO3 19.5 MMOL/L. (22.0-26.0); ABG TOTAL CO2 19.9 MMOL/L (23.0-31.0); ABG pH (ARTERIAL) 7.348 UNITS (7.350-7.450)
[2023-12-24 10:23] LABS: CK-MB VALUE MASS < 1.0 NG/ML (<3.6)
[2023-12-24 10:26] LABS: CPK CREATINE PHOSPHOKINASE 52 U/L (34-145); MB/CK RELATIVE INDEX 1.92 (< OR =4)
[2023-12-24] MEDS: NS 500 ML IV ONE (11:11)
[2023-12-24] MEDS ORDERED: ISOVUE-370 76% 100ML VIAL As Ordered ONE (11:20)
[2023-12-24] MEDS: NS 1,000 ML IV SCH ×2 (11:56→15:47)
[2023-12-24] MEDS: PATIROMER SORBITEX CALCIUM 8.4 GM POWDER PACKET (VELTASSA) PO ONE (11:56)
[2023-12-24 12:14] LABS: TOTAL PROTEIN,RANDOM URINE 8.6 MG/DL (0.0-14.0)
[2023-12-24 12:18] LABS: CREATININE,RANDOM URINE 81.8 MG/DL
[2023-12-24] MEDS: AZITHROMYCIN 250MG TABLET PO ONE (12:45)
[2023-12-24] MEDS: cefTRIAXone SOD 2 GM in D5W MINI-BAG PLUS 50 ML IV ONE (12:46)
[2023-12-24 13:16] LABS: URIC ACID 6.6 MG/DL (3.1-7.8)
[2023-12-24 13:17] LABS: MAGNESIUM LEVEL 1.3 MG/DL (1.8-2.4)
[2023-12-24] MEDS ORDERED: MED REC IN PROGRESS XX SCH (13:20)
[2023-12-24] MEDS ORDERED: CARV3.12 PO (13:54)
[2023-12-24] MEDS ORDERED: LEVA45AE INH (13:54)
[2023-12-24] MEDS ORDERED: HOME MED LIST COMPLETE! XX SCH (14:00)
[2023-12-24] MEDS ORDERED: ALPRAZolam 0.25 MG TAB PO PRN (14:10)
[2023-12-24 14:39] VITALS: BP 162/96; TEMP 97.5; O2SAT 94
[2023-12-24 14:49] LABS: C REACTIVE PROTEIN QUANTITATIV < 0.40 MG/DL (<1.0)
[2023-12-24 15:02] LABS: PROCALCITONIN 0.05 ng/ml
[2023-12-24] MEDS: ALBUTEROL SULFATE 2.5MG/0.5ML INH NEB SOLN NEB SCH (15:34)
[2023-12-24] MEDS: MAG SULF 1GM/100ML (MAG RUN) 1 GM in IV 1 EA IV SCH (16:30)
[2023-12-24] MEDS: ATENOLOL 12.5MG PER 1/2 TABLET PO SCH (16:30)
[2023-12-24] MEDS: methylPREDNISolone 40MG 1ML VIAL IV SCH (18:06)
[2023-12-24] MEDS: RIVAROXABAN 10MG TAB (XARELTO) PO SCH (18:08)
[2023-12-24] MEDS: SYMBICORT 160/4.5MCG INHALER 6GM INH SCH (19:52)
[2023-12-24] MEDS: guaiFENesin ER TABLET 600 MG TAB PO SCH (20:10)
[2023-12-24] MEDS: DOXYCYCLINE HYCLATE 100MG TABLET PO SCH (20:10)
[2023-12-24] MEDS: OMEPRAZOLE 20MG CAP PO SCH (20:11)
[2023-12-24 22:05] VITALS: BP 140/71; TEMP 97.7; O2SAT 95
[2023-12-24] MEDS: LORazepam 1 MG TAB PO ONE (23:02)
[2023-12-25] MEDS: LEVOTHYROXINE 125MCG TABLET (0.125MG) PO SCH (05:15)
[2023-12-25 06:00] VITALS: BP 104/55; TEMP 97.5; O2SAT 94
[2023-12-25 06:45] LABS: BASO % 0.1 % (0.0-1.0); EOS % 0.1 % (0.0-3.0); HEMATOCRIT 33.9 % (36.0-47.0); HEMOGLOBIN 10.8 g/dl (12.0-15.5); LYMPH # 0.8 10^3/uL (1.5-5.0); LYMPH % 10.6 % (24.0-44.0); MEAN CORPUSCULAR HEMOGLOBIN 29.8 pg (27.0-33.0); MEAN CORPUSCULAR HGB CONC 31.9 g/dl (32.0-36.5); MEAN CORPUSCULAR VOLUME 93.4 fl (80.0-96.0); MONO # 0.1 10^3/uL (0.0-0.8); MONO % 1.8 % (2.0-8.0); NEUTROPHILS # 6.3 10^3/uL (1.5-8.5); NEUTROPHILS % 86.6 % (36.0-66.0); PLATELET COUNT, AUTOMATED 178 10^3/uL (150-450); RED BLOOD COUNT 3.63 10^6/uL (4.00-5.40); WHITE BLOOD COUNT 7.3 10^3/uL (4.0-10.0)
[2023-12-25 07:12] LABS: CALCIUM LEVEL 9.2 MG/DL (8.3-10.6); CREATININE FOR GFR 1.15 MG/DL (0.55-1.30); GLOMERULAR FILTRATION RATE 49.5 (>39); POTASSIUM SERUM 4.9 MMOL/L (3.5-5.1)
[2023-12-25] MEDS: TIOTROPIUM INHALER/CAPSULE (SPIRIVA) INH SCH (07:20)
[2023-12-25] MEDS: ASPIRIN 81MG ENTERIC TABLET PO SCH (08:08)
[2023-12-25] MEDS: ATORVASTATIN 20 MG TAB PO SCH (08:08)
[2023-12-25] MEDS ORDERED: CHLORTHALIDONE 12.5MG PER 1/2 TABLET PO SCH (09:00)
[2023-12-25] MEDS: ALBUTEROL SULFATE 2.5MG/0.5ML INH NEB SOLN NEB PRN (13:00)
[2023-12-25] MEDS: LORazepam 1 MG TAB PO PRN (13:20)
[2023-12-25 14:00] VITALS: BP 108/55; TEMP 98.1; O2SAT 92
[2023-12-25 22:17] VITALS: BP 108/55; TEMP 98.1; O2SAT 94
[2023-12-26 05:27] VITALS: BP 119/66; TEMP 98.6; O2SAT 93
[2023-12-26 06:41] LABS: BASO % 0.1 % (0.0-1.0); EOS # 0.1 10^3/uL (0.0-0.5); EOS % 0.5 % (0.0-3.0); HEMATOCRIT 34.3 % (36.0-47.0); HEMOGLOBIN 10.7 g/dl (12.0-15.5); LYMPH # 0.8 10^3/uL (1.5-5.0); LYMPH % 5.1 % (24.0-44.0); MEAN CORPUSCULAR HEMOGLOBIN 29.4 pg (27.0-33.0); MEAN CORPUSCULAR HGB CONC 31.2 g/dl (32.0-36.5); MEAN CORPUSCULAR VOLUME 94.2 fl (80.0-96.0); MONO # 0.6 10^3/uL (0.0-0.8); MONO % 3.5 % (2.0-8.0); NEUTROPHILS # 14.8 10^3/uL (1.5-8.5); NEUTROPHILS % 89.5 % (36.0-66.0); PLATELET COUNT, AUTOMATED 206 10^3/uL (150-450); RED BLOOD COUNT 3.64 10^6/uL (4.00-5.40); WHITE BLOOD COUNT 16.5 10^3/uL (4.0-10.0)
[2023-12-26 07:05] LABS: CALCIUM LEVEL 8.8 MG/DL (8.3-10.6); CREATININE FOR GFR 1.06 MG/DL (0.55-1.30); GLOMERULAR FILTRATION RATE 54.4 (>39); POTASSIUM SERUM 4.3 MMOL/L (3.5-5.1)
[2023-12-26] MEDS: methylPREDNISolone 40MG 1ML VIAL IV SCH (10:58)
[2023-12-26] MEDS: FLUZONE HIGH DOSE(65YR UP)QUAD/PF 240MCG/0.7ML SYRINGE IM.IMMUN ONE (12:04)
[2023-12-26] MEDS: PREVNAR-20 VACCINE 0.5ML SYRINGE IM.IMMUN ONE (12:05)
[2023-12-26 14:00] VITALS: BP 136/72; TEMP 98.1; O2SAT 94
[2023-12-26 22:00] VITALS: BP 131/62; TEMP 98.4; O2SAT 97
[2023-12-27 06:00] VITALS: BP 130/66; TEMP 98.1; O2SAT 92
[2023-12-27 06:11] LABS: BASO % 0.1 % (0.0-1.0); EOS % 0.4 % (0.0-3.0); HEMATOCRIT 30.8 % (36.0-47.0); HEMOGLOBIN 9.7 g/dl (12.0-15.5); LYMPH # 0.6 10^3/uL (1.5-5.0); LYMPH % 5.8 % (24.0-44.0); MEAN CORPUSCULAR HEMOGLOBIN 29.2 pg (27.0-33.0); MEAN CORPUSCULAR HGB CONC 31.5 g/dl (32.0-36.5); MEAN CORPUSCULAR VOLUME 92.8 fl (80.0-96.0); MONO # 0.6 10^3/uL (0.0-0.8); MONO % 5.3 % (2.0-8.0); NEUTROPHILS # 9.3 10^3/uL (1.5-8.5); PLATELET COUNT, AUTOMATED 174 10^3/uL (150-450); RED BLOOD COUNT 3.32 10^6/uL (4.00-5.40); WHITE BLOOD COUNT 10.7 10^3/uL (4.0-10.0)
[2023-12-27 06:34] LABS: CALCIUM LEVEL 8.8 MG/DL (8.3-10.6); CREATININE FOR GFR 1.09 MG/DL (0.55-1.30); GLOMERULAR FILTRATION RATE 52.7 (>39); POTASSIUM SERUM 4.8 MMOL/L (3.5-5.1)
[2023-12-27 14:00] VITALS: BP 94/64; TEMP 97.9; O2SAT 95
[2023-12-27 14:26] VITALS: BP 94/64
[2023-12-27] MEDS: CHLORTHALIDONE 12.5MG PER 1/2 TABLET PO SCH (14:49)
[2023-12-27 20:54] VITALS: BP 106/48; TEMP 98.1; O2SAT 100
[2023-12-28 05:35] VITALS: BP 134/65; TEMP 97.5; O2SAT 99
[2023-12-28 07:38] LABS: BASO % 0.1 % (0.0-1.0); HEMATOCRIT 32.8 % (36.0-47.0); HEMOGLOBIN 10.4 g/dl (12.0-15.5); LYMPH # 0.9 10^3/uL (1.5-5.0); LYMPH % 8.4 % (24.0-44.0); MEAN CORPUSCULAR HEMOGLOBIN 29.7 pg (27.0-33.0); MEAN CORPUSCULAR HGB CONC 31.7 g/dl (32.0-36.5); MEAN CORPUSCULAR VOLUME 93.7 fl (80.0-96.0); MONO # 0.7 10^3/uL (0.0-0.8); MONO % 7.1 % (2.0-8.0); NEUTROPHILS # 8.5 10^3/uL (1.5-8.5); NEUTROPHILS % 83.1 % (36.0-66.0); PLATELET COUNT, AUTOMATED 192 10^3/uL (150-450); WHITE BLOOD COUNT 10.2 10^3/uL (4.0-10.0)
[2023-12-28 08:04] LABS: CALCIUM LEVEL 8.6 MG/DL (8.3-10.6); CREATININE FOR GFR 1.13 MG/DL (0.55-1.30); GLOMERULAR FILTRATION RATE 50.5 (>39); POTASSIUM SERUM 5.3 MMOL/L (3.5-5.1)
[2023-12-28] MEDS: predniSONE 20 MG TAB PO SCH (09:00)
[2023-12-28 09:05] VITALS: BP 144/91
[2023-12-28] MEDS ORDERED: ASPI81TAEC PO (10:54)
[2023-12-28] MEDS ORDERED: OMEP-173 PO (10:54)
[2023-12-28] MEDS ORDERED: ATIV1TAB10 PO (10:54)
[2023-12-28] MEDS ORDERED: DOXY100T PO (10:54)
[2023-12-28] MEDS ORDERED: PRED10TA2 PO (10:54)
[2023-12-29] MEDS ORDERED: CHLORTHALIDONE 12.5MG PER 1/2 TABLET PO SCH (09:00)
[2023-12-30] MEDS ORDERED: LEVO1TAB40 PO (08:15)
== END 2023-12-28 14:10 | disposition home or self-care (01) ==
LOC: M ED 08:35 → M ED INP 13:35 → INTOOBSV 13:35 → M MSPAV 15:19
PROVIDERS: ADMIT Internal Medicine Nephrology; ATTEND Internal Medicine Nephrology
DX: J44.0 Chronic obstructive pulmonary disease with (acute) lower respiratory infection (principal); J98.11 Atelectasis; N17.9 Acute kidney failure, unspecified; B96.1 Klebsiella pneumoniae [K. pneumoniae] as the cause of diseases classified elsewhere; B96.83 Acinetobacter baumannii as the cause of diseases classified elsewhere; R91.8 Other nonspecific abnormal finding of lung field; F41.1 Generalized anxiety disorder; E87.5 Hyperkalemia; E83.42 Hypomagnesemia; I70.1 Atherosclerosis of renal artery; N26.1 Atrophy of kidney (terminal); E03.9 Hypothyroidism, unspecified; F51.5 Nightmare disorder; I10 Essential (primary) hypertension; I25.10 Atherosclerotic heart disease of native coronary artery without angina pectoris; I24.89 Other forms of acute ischemic heart disease; K21.9 Gastro-esophageal reflux disease without esophagitis; R06.02 Shortness of breath; Z23 Encounter for immunization; J45.909 Unspecified asthma, uncomplicated; G70.00 Myasthenia gravis without (acute) exacerbation; F43.10 Post-traumatic stress disorder, unspecified; M54.9 Dorsalgia, unspecified; Z87.891 Personal history of nicotine dependence; Z88.1 Allergy status to other antibiotic agents; Z88.0 Allergy status to penicillin; Z88.8 Allergy status to other drugs, medicaments and biological substances; Z88.6 Allergy status to analgesic agent; Z79.899 Other long term (current) drug therapy; Z79.51 Long term (current) use of inhaled steroids; Z79.890 Hormone replacement therapy; Z82.49 Family history of ischemic heart disease and other diseases of the circulatory system; Z82.41 Family history of sudden cardiac death; Z80.0 Family history of malignant neoplasm of digestive organs; Z84.1 Family history of disorders of kidney and ureter
CPT/HCPCS: 36415; 36600; 71045; 71275; 80048; 80076; 82550; 82553; 82570; 82803; 83690; 83735; 83880; 83930; 83935; 84133; 84145; 84156; 84300; 84439; 84443; 84484; 84550; 85025; 85610; 85730; 86140; 87040; 87070; 87077; 87186; 87205; 87486; 87581; 87633; 87798; 90662; 90677; 93005; 93041; 94640; 94760; 96361; 96365; 96375; 96376; 99285; G0008; G0009; G0378; J0696; J2920; J3475; J7512; Q9967

== ENCOUNTER 2024-01-05 15:38 | Emergency (ER) | payer MEDICARE, MEDICAID ==
[~2024-01-05] VITALS: Ht 160 cm; Wt 68.0 kg
[2024-01-05 15:38] VITALS: BP 174/96; TEMP 96.1; O2SAT 96
[~2024-01-05 15:38] MED LIST changes: +ASPI81TAEC PO; +ATEN25TA PO; +ATIV1TAB10 PO; +CHLO125TA PO; +DOXY100T PO; +LEVO1TAB40 PO; +OMEP-173 PO; +SPIR-10 PO
== END 2024-01-05 17:37 | disposition left against medical advice (07) ==
LOC: M ED 15:38
DX: Z53.21 Procedure and treatment not carried out due to patient leaving prior to being seen by health care provider (principal)

== ENCOUNTER → 2024-06-18 | Outpatient (CLI) | payer MEDICARE, MEDICAID | LOC: M RAD 10:49 | PROVIDERS: ATTEND Internal Medicine Pulmonary Disease | DX: R91.8 Other nonspecific abnormal finding of lung field (principal) ==

== ENCOUNTER 2024-07-04 11:28 | Emergency (ER) | payer MEDICARE, MEDICAID ==
[~2024-07-04] VITALS: Ht 160 cm; Wt 63.8 kg
[2024-07-04 11:29] VITALS: BP 168/75; TEMP 98.1; O2SAT 95
== END 2024-07-04 11:33 | disposition left against medical advice (07) ==
LOC: M ED 11:28
DX: Z53.21 Procedure and treatment not carried out due to patient leaving prior to being seen by health care provider (principal)

== ENCOUNTER 2024-08-12 20:39 | Emergency (ER) | payer MEDICARE, MEDICAID ==
[~2024-08-12] VITALS: Ht 160 cm; Wt 62.7 kg
[2024-08-12] MEDS: ALBUTEROL SULFATE 2.5MG/0.5ML INH NEB SOLN NEB ONE (22:00)
[2024-08-12 22:01] LABS: VENOUS BASE EXCESS -7.2 (-2.0-2.0); VENOUS HCO3 19.3 MMOL/L (23.0-27.0); VENOUS O2 SATURATION 61.9 % (60.0-80.0); VENOUS PARTIAL PRESSURE CO2 42.3 mmHg (38.0-50.0); VENOUS PARTIAL PRESSURE O2 33.5 mmHg (30.0-50.0); VENOUS PH 7.277 UNITS (7.330-7.430); VENOUS STANDARD HCO3 17.9 MMOL/L; VENOUS TOTAL CO2 20.6 MMOL/L (24.0-28.0)
[2024-08-12 22:04] LABS: BASO # 0.1 10^3/uL (0.0-0.2); BASO % 0.7 % (0.0-1.0); EOS # 0.1 10^3/uL (0.0-0.5); HEMATOCRIT 42.2 % (36.0-47.0); HEMOGLOBIN 13.8 g/dl (12.0-15.5); LYMPH # 1.8 10^3/uL (1.5-5.0); LYMPH % 26.1 % (24.0-44.0); MEAN CORPUSCULAR HEMOGLOBIN 30.2 pg (27.0-33.0); MEAN CORPUSCULAR HGB CONC 32.7 g/dl (32.0-36.5); MEAN CORPUSCULAR VOLUME 92.3 fl (80.0-96.0); MONO # 0.5 10^3/uL (0.0-0.8); MONO % 7.7 % (2.0-8.0); NEUTROPHILS # 4.4 10^3/uL (1.5-8.5); NEUTROPHILS % 63.1 % (36.0-66.0); PLATELET COUNT, AUTOMATED 164 10^3/uL (150-450); RED BLOOD COUNT 4.57 10^6/uL (4.00-5.40); WHITE BLOOD COUNT 6.9 10^3/uL (4.0-10.0)
[2024-08-12 22:38] LABS: CK-MB VALUE MASS 1.3 NG/ML (<3.6)
[2024-08-12 22:40] LABS: ALBUMIN 3.7 G/DL (3.2-5.2); BILIRUBIN,DIRECT 0.4 MG/DL (<0.4); BILIRUBIN,TOTAL 1.2 MG/DL (0.3-1.2); CALCIUM LEVEL 9.3 MG/DL (8.3-10.6); CREATININE FOR GFR 1.15 MG/DL (0.55-1.30); GLOMERULAR FILTRATION RATE 49.5 (>39); MB/CK RELATIVE INDEX 1.13 (< OR =4); POTASSIUM SERUM 5.2 MMOL/L (3.5-5.1); TOTAL PROTEIN 7.7 G/DL (5.7-8.2)
[2024-08-12 23:44] LABS: CK-MB VALUE MASS < 1.0 NG/ML (<3.6)
[2024-08-12 23:47] LABS: CPK CREATINE PHOSPHOKINASE 115 U/L (34-145); MB/CK RELATIVE INDEX 0.86 (< OR =4)
[2024-08-13] MEDS ORDERED: ISOVUE-370 76% 100ML VIAL As Ordered ONE (00:26)
[2024-08-13 01:30] LABS: MB/CK RELATIVE INDEX 1.16 (< OR =4)
[2024-08-13] MEDS: methylPREDNISolone 125MG 2ML VIAL IV ONE (01:55)
[2024-08-13] MEDS ORDERED: HOME MED LIST COMPLETE! XX SCH (02:25)
[2024-08-13] MEDS ORDERED: NITR0.4S14 PO (02:25)
[2024-08-13 03:07] LABS: CK-MB VALUE MASS 1.3 NG/ML (<3.6)
[2024-08-13 03:09] LABS: MB/CK RELATIVE INDEX 1.31 (< OR =4)
[2024-08-13] MEDS ORDERED: HEPARIN SOD (PORCINE) 5000UNITS/ML 1ML VIAL/SYRINGE IV PRN (04:35)
[2024-08-13] MEDS: ASPIRIN 81MG CHEW TABLET PO ONE (04:52)
[2024-08-13] MEDS: HEPARIN SOD (PORCINE) 5000UNITS/ML 1ML VIAL/SYRINGE IV ONE (05:18)
[2024-08-13] MEDS: HEPARIN DRIP 25,000 UNITS in IV 1 EA IV SCH (07:40)
[2024-08-13] MEDS: LORazepam 0.5 MG TAB PO ONE (07:52)
[2024-08-13] MEDS: ALBUTEROL SULFATE 2.5MG/0.5ML INH NEB SOLN NEB ONE (08:37)
[2024-08-13 08:52] VITALS: BP 153/70; TEMP 97.2; O2SAT 99
== END 2024-08-13 08:55 | disposition short-term general hospital (02) ==
LOC: EDBD 20:39 → M ED 20:39
DX: I21.4 Non-ST elevation (NSTEMI) myocardial infarction (principal); J44.1 Chronic obstructive pulmonary disease with (acute) exacerbation; G70.00 Myasthenia gravis without (acute) exacerbation; I50.22 Chronic systolic (congestive) heart failure; I25.2 Old myocardial infarction; I11.0 Hypertensive heart disease with heart failure; J45.909 Unspecified asthma, uncomplicated; E78.5 Hyperlipidemia, unspecified; F17.290 Nicotine dependence, other tobacco product, uncomplicated; Z88.1 Allergy status to other antibiotic agents; Z88.8 Allergy status to other drugs, medicaments and biological substances; Z79.1 Long term (current) use of non-steroidal anti-inflammatories (NSAID); Z79.899 Other long term (current) drug therapy
CPT/HCPCS: 71045; 71275; 80048; 80076; 82550; 82553; 82803; 83605; 83880; 84484; 85025; 85730; 87040; 87486; 87581; 87633; 87798; 93005; 93041; 94640; 94760; 96365; 96374; 99285; Q9967

== ENCOUNTER 2025-03-08 18:31 | Emergency (ER) | payer MEDICARE, MEDICAID ==
[~2025-03-08] VITALS: Ht 160 cm; Wt 68.2 kg
[~2025-03-08 18:31] MED LIST changes: -CYCL5TAB PO; +CYCL5TAB4 PO; +GABA-1172 PO; -GABA-282 PO; +NITR0.4S14 PO
[2025-03-08] MEDS: IPRATROPIUM 0.5MG/ALBUTEROL 2.5MG INH SOL UD 3ML NEB PRN (19:06)
[2025-03-08 19:17] LABS: VENOUS BASE EXCESS -3.8 (-2.0-2.0); VENOUS HCO3 21.1 MMOL/L (23.0-27.0); VENOUS O2 SATURATION 95.6 % (60.0-80.0); VENOUS PARTIAL PRESSURE CO2 37.6 mmHg (38.0-50.0); VENOUS PARTIAL PRESSURE O2 76.8 mmHg (30.0-50.0); VENOUS PH 7.366 UNITS (7.330-7.430); VENOUS STANDARD HCO3 21.3 MMOL/L; VENOUS TOTAL CO2 22.2 MMOL/L (24.0-28.0)
[2025-03-08 19:24] LABS: HEMOGLOBIN 12.9 g/dl (12.0-15.5); MEAN CORPUSCULAR HEMOGLOBIN 29.5 pg (27.0-33.0); MEAN CORPUSCULAR HGB CONC 32.3 g/dl (32.0-36.5); MEAN CORPUSCULAR VOLUME 91.5 fl (80.0-96.0); PLATELET COUNT, AUTOMATED 199 10^3/uL (150-450); RED BLOOD COUNT 4.37 10^6/uL (4.00-5.40); WHITE BLOOD COUNT 5.7 10^3/uL (4.0-10.0)
[2025-03-08 19:33] LABS: INR 0.84; PROTHROMBIN TIME 11.8 SECONDS (12.5-14.5)
[2025-03-08] MEDS: methylPREDNISolone 125MG 2ML VIAL IV ONE (19:38)
[2025-03-08 19:45] LABS: CK-MB VALUE MASS 1.1 NG/ML (<3.6)
[2025-03-08 19:47] LABS: ALBUMIN 3.6 G/DL (3.2-5.2); ALKALINE PHOSPHATASE 105 U/L (35-104); ALT/SGPT 20 U/L (7.0-40); AST/SGOT 31 U/L (<34); BILIRUBIN,DIRECT < 0.1 MG/DL (<0.4); BILIRUBIN,TOTAL 0.3 MG/DL (0.3-1.2); BLOOD UREA NITROGEN 32 MG/DL (9-23); CALCIUM LEVEL 9.2 MG/DL (8.3-10.6); CARBON DIOXIDE LEVEL 21 MMOL/L (20-31); CHLORIDE LEVEL 111 MMOL/L (98-107); CREATININE FOR GFR 1.25 MG/DL (0.55-1.30); GLOMERULAR FILTRATION RATE 45.8 (>39); GLUCOSE, FASTING 90 MG/DL (74-106); POTASSIUM SERUM 4.7 MMOL/L (3.5-5.1); SODIUM LEVEL 145 MMOL/L (136-145); TOTAL PROTEIN 7.1 G/DL (5.7-8.2)
[2025-03-08 19:49] LABS: THYROID STIMULATING HORMONE 0.022 uIU/ML (0.55-4.78)
[2025-03-08 19:50] LABS: ATYPICAL LYMPH 6 % (0-5); EOSINOPHILS 3 % (0-3); LYMPHOCYTES 42 % (16-44); MONOCYTES 7 % (0-5); NEUTROPHILS 42 % (28-66); PLATELET ESTIMATE NORMAL (NORMAL)
[2025-03-08 19:56] LABS: CPK CREATINE PHOSPHOKINASE 84 U/L (34-145)
[2025-03-08] MEDS ORDERED: ISOVUE-370 76% 100ML VIAL As Ordered ONE (20:19)
[2025-03-08 20:40] VITALS: O2SAT 96
[2025-03-08 20:52] LABS: CK-MB VALUE MASS 1.3 NG/ML (<3.6)
[2025-03-08 20:53] LABS: CPK CREATINE PHOSPHOKINASE 74 U/L (34-145); MB/CK RELATIVE INDEX 1.75 (< OR =4)
[2025-03-08] MEDS ORDERED: OSEL75CA PO (23:58)
[2025-03-09] MEDS: methylPREDNISolone 125MG 2ML VIAL IV ONE (00:07)
[2025-03-09] MEDS ORDERED: TAMI30CA PO (00:13)
[2025-03-09 00:14] VITALS: BP 164/86; TEMP 98.6; O2SAT 96
[2025-03-09] MEDS: OSELTAMIVIR PHOSPHATE 75 MG CAP PO ONE (00:25)
== END 2025-03-09 00:29 | disposition home or self-care (01) ==
LOC: M ED 18:31
DX: J09.X2 Influenza due to identified novel influenza A virus with other respiratory manifestations (principal); J44.1 Chronic obstructive pulmonary disease with (acute) exacerbation; I25.119 Atherosclerotic heart disease of native coronary artery with unspecified angina pectoris; J45.909 Unspecified asthma, uncomplicated; E03.9 Hypothyroidism, unspecified; G70.00 Myasthenia gravis without (acute) exacerbation; F17.210 Nicotine dependence, cigarettes, uncomplicated; Z88.1 Allergy status to other antibiotic agents; Z88.6 Allergy status to analgesic agent; Z88.8 Allergy status to other drugs, medicaments and biological substances; Z79.1 Long term (current) use of non-steroidal anti-inflammatories (NSAID); Z79.52 Long term (current) use of systemic steroids; Z79.899 Other long term (current) drug therapy
CPT/HCPCS: 36600; 71045; 71275; 80048; 80076; 82550; 82553; 82803; 83880; 84443; 84484; 85025; 85610; 87486; 87581; 87633; 87798; 93005; 93041; 94640; 94760; 96374; 99285; J2919; Q9967

== ENCOUNTER → 2025-06-03 | Outpatient (CLI) | payer MEDICARE, MEDICAID ==
[~2025-06-03] MED LIST changes: +OSEL75CA PO; +TAMI30CA PO
[2025-06-03 16:07] LABS: CALCIUM LEVEL 9.2 MG/DL (8.3-10.6); CARBON DIOXIDE LEVEL 29.0 MMOL/L (20-31); CHLORIDE LEVEL 99.0 MMOL/L (98-107); CHOLESTEROL LEVEL 123.0 MG/DL (<200); CHOLESTEROL RISK RATIO 2.35 (<5); CREATININE FOR GFR 1.81 MG/DL (0.55-1.30); FREE T4 2.1 NG/DL (0.89-1.76); GLOMERULAR FILTRATION RATE 29.4 (>39); LDL CHOLESTEROL 57.0 MG/DL (<100); NON-HDL-C 70.8 MG/DL; POTASSIUM SERUM 3.3 MMOL/L (3.5-5.1); SODIUM LEVEL 145.0 MMOL/L (136-145); TRIGLYCERIDES LEVEL 69.0 MG/DL (<150)
[2025-06-03 16:09] LABS: TOTAL 25(OH) VITAMIN D 18.5 NG/ML (20.0-100.0)
== END ==
LOC: M PLALAB 11:21
PROVIDERS: ATTEND Student in an Organized Health Care Education/Training Program
DX: Z00.00 Encounter for general adult medical examination without abnormal findings (principal); Z79.899 Other long term (current) drug therapy